=== PATIENT | female | born 1940 | race Two or more races ===

== ENCOUNTER 2020-06-14 08:26 | Outpatient (REF) | payer OTHER, SELFPAY ==
[2020-06-14 10:11] LABS: Alanine Aminotransferase 15 U/L (0-31); Albumin Level 3.9 g/dL (3.5-5.0); Alkaline Phosphatase 63 U/L (39-117); Anion Gap 14 (12-20); Aspartate Amino Transferase 16 U/L (5-31); Blood Urea Nitrogen 19 mg/dL (9-16); Calcium 8.8 mg/dL (8.4-10.2); Carbon Dioxide 28 mmol/L (22-29); Chloride 101 mmol/L (96-108); Cholesterol 176 mg/dL; Estimated Glomerular Filt Rate 44; Glucose Fasting 140 mg/dL (60-99); HDL Cholesterol 58 mg/dL; LDL Cholesterol Calculated 87 mg/dl; Potassium 4.1 mmol/l (3.3-5.1); Sodium 139 mmol/L (135-145); Total Protein 7.1 g/dL (6.5-8.0); Triglycerides 156 mg/dL
== END 2020-06-14 08:27 | disposition home or self-care (01) ==
LOC: HO.LAB 08:26
PROVIDERS: PCP Internal Medicine; Visit Provider Internal Medicine
DX: I10 Essential (primary) hypertension (principal)
CPT/HCPCS: 80053; 80061

== ENCOUNTER 2020-07-05 08:37 | Outpatient (REF) | payer OTHER, SELFPAY ==
[2020-07-05 08:57] LABS: MANUAL DIFF FLAG NO
[2020-07-05 09:06] LABS: Basophils Percent Auto 0.3 % (0-2); Eosinophils Absolute Auto 0.1 X10*3/uL (0.0-0.4); Eosinophils Percent Auto 1.7 % (0-4); Hematocrit 39.2 % (37-47); Hemoglobin 13.7 g/dl (12.0-16.0); Imm Gran Abs Auto 0.01 X10*3/uL (0.00-0.03); Imm Gran Pct Auto 0.2 % (0.0-0.4); Lymphocytes Absolute Auto 1.3 X10*3/uL (1.2-4.9); Lymphocytes Percent Auto 22.1 % (20-40); Mean Corpuscular HGB Conc 34.9 g/dl (31.0-35.0); Mean Corpuscular Hemoglobin 30.6 pg (27.0-33.0); Mean Corpuscular Volume 87.7 fL (80-98); Mean Platelet Volume 9.8 fL (9.4-12.3); Monocytes Absolute Auto 0.4 X10*3/uL (0.1-1.2); Monocytes Percent Auto 6.8 % (2-11); Neutrophils Absolute Auto 4.2 X10*3/uL (2.0-8.3); Neutrophils Percent Auto 68.9 % (45-73); Platelet Count 201 X10*3/uL (160-400); Red Blood Count 4.47 X10*6/uL (4.20-5.50); Red Cell Distribution Width 12.2 % (11.0-16.0)
[2020-07-05 09:35] LABS: Anion Gap 12 (12-20); Blood Urea Nitrogen 22 mg/dL (9-16); Calcium 9.2 mg/dL (8.4-10.2); Carbon Dioxide 28 mmol/L (22-29); Chloride 101 mmol/L (96-108); Estimated Glomerular Filt Rate 40; Potassium 4.1 mmol/l (3.3-5.1); Sodium 137 mmol/L (135-145)
== END 2020-07-05 08:38 | disposition home or self-care (01) ==
LOC: HO.LAB 08:37
PROVIDERS: PCP Internal Medicine; Visit Provider Internal Medicine Hypertension Specialist
DX: I11.0 Hypertensive heart disease with heart failure (principal); N18.9 Chronic kidney disease, unspecified
CPT/HCPCS: 36415; 80051; 82310; 82565; 84520; 85025

== ENCOUNTER 2020-07-10 13:38 | Outpatient (REF) | payer OTHER, SELFPAY ==
--- NOTE | 2020-07-10 | MM_ITS ---
EXAMINATION: MM SCREENING DIGITAL BREAST TOMOSYNTHESIS, BILATERAL CLINICAL INFORMATION: Screening. Asymptomatic. The lifetime risk of breast cancer based on the Tyrer-Cuzick Model is 2%. COMPARISON: Mammography: 03/15/2019, 03/04/2018, 02/05/2017 TECHNIQUE: Digital breast tomosynthesis is performed in both the craniocaudal and mediolateral oblique views along with computer-aided detection (CAD). Synthesized 2D images are generated from the tomosynthesis. FINDINGS: There are scattered areas of fibroglandular density (ACR BI-RADS breast composition Category b). There are no significant masses, abnormal calcifications, or other abnormalities. The axilla and skin contours are unremarkable. No significant changes. MM/MM tomosynthesis screening BI IMPRESSION: No mammographic evidence of malignancy. ASSESSMENT: BI-RADS 1: Negative RECOMMENDATION: Routine annual mammography screening. This patient's information was entered into a reminder system with a target due date for their next mammogram.
== END 2020-07-10 13:39 | disposition home or self-care (01) ==
LOC: HO.MAMMO 13:38
PROVIDERS: PCP Internal Medicine; Visit Provider Internal Medicine
DX: Z12.31 Encounter for screening mammogram for malignant neoplasm of breast (principal)
CPT/HCPCS: 77063; 77067

== ENCOUNTER 2020-11-27 09:10 | Outpatient (REF) | payer MEDICARE, SELFPAY ==
[2020-11-27 10:37] LABS: MANUAL DIFF FLAG NO
[2020-11-27 10:58] LABS: Basophils Percent Auto 0.4 % (0-2); Eosinophils Absolute Auto 0.1 X10*3/uL (0.0-0.4); Eosinophils Percent Auto 1.3 % (0-4); Hematocrit 40.4 % (37-47); Hemoglobin 13.5 g/dl (12.0-16.0); Imm Gran Abs Auto 0.03 X10*3/uL (0.00-0.03); Imm Gran Pct Auto 0.6 % (0.0-0.4); Lymphocytes Absolute Auto 1.3 X10*3/uL (1.2-4.9); Lymphocytes Percent Auto 24.3 % (20-40); Mean Corpuscular HGB Conc 33.4 g/dl (31.0-35.0); Mean Corpuscular Hemoglobin 29.9 pg (27.0-33.0); Mean Corpuscular Volume 89.6 fL (80-98); Mean Platelet Volume 10.3 fL (9.4-12.3); Monocytes Absolute Auto 0.4 X10*3/uL (0.1-1.2); Monocytes Percent Auto 6.6 % (2-11); Neutrophils Absolute Auto 3.6 X10*3/uL (2.0-8.3); Neutrophils Percent Auto 66.8 % (45-73); Platelet Count 200 X10*3/uL (160-400); Red Blood Count 4.51 X10*6/uL (4.20-5.50); Red Cell Distribution Width 12.7 % (11.0-16.0); White Blood Count 5.3 X10*3/uL (4.8-10.8)
[2020-11-27 11:41] LABS: Alanine Aminotransferase 18 U/L (0-31); Alkaline Phosphatase 64 U/L (39-117); Anion Gap 14 (12-20); Aspartate Amino Transferase 18 U/L (5-31); Bilirubin Total 0.8 mg/dL (0.0-1.0); Blood Urea Nitrogen 18 mg/dL (9-16); Calcium 9.5 mg/dL (8.4-10.2); Carbon Dioxide 27 mmol/L (22-29); Chloride 102 mmol/L (96-108); Cholesterol 160 mg/dL; Estimated Glomerular Filt Rate 41; Glucose Fasting 111 mg/dL (60-99); HDL Cholesterol 56 mg/dL; LDL Cholesterol Calculated 73 mg/dl; Potassium 4.1 mmol/L (3.3-5.1); Sodium 139 mmol/L (135-145); Total Protein 7.3 g/dL (6.5-8.0); Triglycerides 158 mg/dL
[2020-11-28 11:56] LABS: Calcium, Ionized 4.9 mg/dL (4.8-5.6)
[2020-12-03 22:56] LABS: Parathyroid Hormone Related Pr 16 pg/mL (14-27)
== END 2020-11-27 09:11 | disposition home or self-care (01) ==
LOC: HO.LAB 09:10
PROVIDERS: PCP Internal Medicine; Visit Provider Internal Medicine
DX: R73.02 Impaired glucose tolerance (oral) (principal); E78.00 Pure hypercholesterolemia, unspecified; E78.5 Hyperlipidemia, unspecified; E21.3 Hyperparathyroidism, unspecified; D64.9 Anemia, unspecified; J45.30 Mild persistent asthma, uncomplicated
CPT/HCPCS: 36415; 80053; 80061; 82330; 83519; 85025

== ENCOUNTER 2020-12-25 09:08 | Outpatient (REF) | payer MEDICARE, SELFPAY ==
[2020-12-25 10:45] LABS: MANUAL DIFF FLAG NO
[2020-12-25 11:05] LABS: Basophils Percent Auto 0.4 % (0-2); Eosinophils Absolute Auto 0.1 X10*3/uL (0.0-0.4); Eosinophils Percent Auto 1.7 % (0-4); Hematocrit 39.5 % (37-47); Hemoglobin 13.4 g/dl (12.0-16.0); Imm Gran Abs Auto 0.02 X10*3/uL (0.00-0.03); Imm Gran Pct Auto 0.4 % (0.0-0.4); Lymphocytes Absolute Auto 1.2 X10*3/uL (1.2-4.9); Lymphocytes Percent Auto 22.4 % (20-40); Mean Corpuscular HGB Conc 33.9 g/dl (31.0-35.0); Mean Corpuscular Hemoglobin 30.5 pg (27.0-33.0); Mean Corpuscular Volume 89.8 fL (80-98); Mean Platelet Volume 10.4 fL (9.4-12.3); Monocytes Absolute Auto 0.4 X10*3/uL (0.1-1.2); Neutrophils Absolute Auto 3.7 X10*3/uL (2.0-8.3); Neutrophils Percent Auto 68.1 % (45-73); Platelet Count 184 X10*3/uL (160-400); Red Cell Distribution Width 12.5 % (11.0-16.0); White Blood Count 5.5 X10*3/uL (4.8-10.8)
[2020-12-25 11:13] LABS: Anion Gap 13 (12-20); Blood Urea Nitrogen 14 mg/dL (9-16); Calcium 9.5 mg/dL (8.4-10.2); Carbon Dioxide 31 mmol/L (22-29); Chloride 100 mmol/L (96-108); Estimated Glomerular Filt Rate 40; Potassium 4.2 mmol/L (3.3-5.1); Sodium 140 mmol/L (135-145)
== END 2020-12-25 09:09 | disposition home or self-care (01) ==
LOC: HO.LAB 09:08
PROVIDERS: PCP Internal Medicine; Visit Provider Internal Medicine Hypertension Specialist
DX: I12.9 Hypertensive chronic kidney disease with stage 1 through stage 4 chronic kidney disease, or unspecified chronic kidney disease (principal); N18.9 Chronic kidney disease, unspecified
CPT/HCPCS: 36415; 80051; 82310; 82565; 84520; 85025

== ENCOUNTER 2021-01-09 08:19 | Outpatient (REF) | payer MEDICARE, SELFPAY ==
[2021-01-09 09:33] LABS: Alanine Aminotransferase 22 U/L (0-31); Albumin Level 4.2 g/dL (3.5-5.0); Alkaline Phosphatase 71 U/L (39-117); Anion Gap 13 (12-20); Aspartate Amino Transferase 28 U/L (5-31); Bilirubin Total 0.7 mg/dL (0.0-1.0); Blood Urea Nitrogen 20 mg/dL (9-16); Calcium 10.4 mg/dL (8.4-10.2); Carbon Dioxide 30 mmol/L (22-29); Chloride 99 mmol/L (96-108); Cholesterol 161 mg/dL; Estimated Glomerular Filt Rate 35; Glucose Fasting 142 mg/dL (60-99); HDL Cholesterol 61 mg/dL; LDL Cholesterol Calculated 77 mg/dl; Potassium 4.4 mmol/L (3.3-5.1); Sodium 138 mmol/L (135-145); Total Protein 7.5 g/dL (6.5-8.0); Triglycerides 116 mg/dL
[2021-01-09 10:00] LABS: Estimated Average Glucose 94 mg/dL; Hemoglobin A1c % 4.9 %
== END 2021-01-09 08:20 | disposition home or self-care (01) ==
LOC: HO.LAB 08:19
PROVIDERS: PCP Internal Medicine; Visit Provider Internal Medicine
DX: E11.40 Type 2 diabetes mellitus with diabetic neuropathy, unspecified (principal); E78.00 Pure hypercholesterolemia, unspecified
CPT/HCPCS: 36415; 80053; 80061; 83036

== ENCOUNTER 2021-03-17 11:37 | Outpatient (REF) | payer MEDICARE, SELFPAY ==
[2021-03-17 14:14] LABS: Alanine Aminotransferase 16 U/L (0-31); Albumin Level 4.1 g/dL (3.5-5.0); Alkaline Phosphatase 69 U/L (39-117); Anion Gap 15 (12-20); Aspartate Amino Transferase 19 U/L (5-31); Bilirubin Total 0.6 mg/dL (0.0-1.0); Blood Urea Nitrogen 18 mg/dL (9-16); Calcium 9.8 mg/dL (8.4-10.2); Carbon Dioxide 29 mmol/L (22-29); Chloride 99 mmol/L (96-108); Estimated Glomerular Filt Rate 40; Glucose Random 129 mg/dL (60-115); Potassium 4.5 mmol/L (3.3-5.1); Sodium 138 mmol/L (135-145); Total Protein 7.3 g/dL (6.5-8.0)
[2021-03-19 11:32] LABS: Calcium (PTHI) 9.6 mg/dL (8.6-10.4); PTHI 78 pg/mL (14-64)
== END 2021-03-17 11:38 | disposition home or self-care (01) ==
LOC: HO.LAB 11:37
PROVIDERS: PCP Internal Medicine; Visit Provider Internal Medicine Hypertension Specialist
DX: I12.9 Hypertensive chronic kidney disease with stage 1 through stage 4 chronic kidney disease, or unspecified chronic kidney disease (principal); N18.9 Chronic kidney disease, unspecified
CPT/HCPCS: 36415; 80053; 83970

== ENCOUNTER 2021-03-26 08:57 | Outpatient (REF) | payer MEDICARE, SELFPAY ==
[2021-03-26 10:13] LABS: Alanine Aminotransferase 17 U/L (0-31); Alkaline Phosphatase 66 U/L (39-117); Anion Gap 13 (12-20); Aspartate Amino Transferase 19 U/L (5-31); Bilirubin Total 0.8 mg/dL (0.0-1.0); Blood Urea Nitrogen 17 mg/dL (9-16); Calcium 9.9 mg/dL (8.4-10.2); Carbon Dioxide 28 mmol/L (22-29); Chloride 101 mmol/L (96-108); Estimated Glomerular Filt Rate 43; Glucose Fasting 126 mg/dL (60-99); Potassium 4.1 mmol/L (3.3-5.1); Sodium 138 mmol/L (135-145); Total Protein 7.2 g/dL (6.5-8.0)
== END 2021-03-26 08:58 | disposition home or self-care (01) ==
LOC: HO.LAB 08:57
PROVIDERS: PCP Internal Medicine; Visit Provider Internal Medicine
DX: R73.02 Impaired glucose tolerance (oral) (principal)
CPT/HCPCS: 36415; 80053

== ENCOUNTER 2021-06-27 09:12 | Outpatient (REF) | payer MEDICARE, SELFPAY ==
[2021-06-27 10:35] LABS: Alanine Aminotransferase 22 U/L (0-31); Alkaline Phosphatase 70 U/L (39-117); Anion Gap 11 (12-20); Aspartate Amino Transferase 21 U/L (5-31); Bilirubin Total 0.6 mg/dL (0.0-1.0); Blood Urea Nitrogen 18 mg/dL (9-16); Calcium 9.6 mg/dL (8.4-10.2); Carbon Dioxide 32 mmol/L (22-29); Chloride 100 mmol/L (96-108); Cholesterol 173 mg/dL; Estimated Glomerular Filt Rate 43; Glucose Fasting 123 mg/dL (60-99); HDL Cholesterol 58 mg/dL; LDL Cholesterol Calculated 88 mg/dl; Potassium 4.3 mmol/L (3.3-5.1); Sodium 139 mmol/L (135-145); Total Protein 7.2 g/dL (6.5-8.0); Triglycerides 139 mg/dL
[2021-07-01 17:07] LABS: Vitamin D 25-OH, D2 <4 ng/mL; Vitamin D 25-OH, D3 50 ng/mL; Vitamin D 25-OH, Total 50 ng/mL (30-100)
== END 2021-06-27 09:13 | disposition home or self-care (01) ==
LOC: HO.XRAY 09:12
PROVIDERS: PCP Internal Medicine; Visit Provider Internal Medicine
DX: E55.9 Vitamin D deficiency, unspecified (principal); E78.5 Hyperlipidemia, unspecified; R73.02 Impaired glucose tolerance (oral)
CPT/HCPCS: 36415; 80053; 80061; 82306

== ENCOUNTER 2021-07-14 09:03 | Outpatient (REF) | payer MEDICARE, SELFPAY ==
[2021-07-14 10:09] LABS: Alanine Aminotransferase 19 U/L (0-31); Albumin Level 3.9 g/dL (3.5-5.0); Alkaline Phosphatase 70 U/L (39-117); Anion Gap 14 (12-20); Aspartate Amino Transferase 18 U/L (5-31); Bilirubin Total 0.8 mg/dL (0.0-1.0); Blood Urea Nitrogen 20 mg/dL (9-16); Calcium 9.6 mg/dL (8.4-10.2); Carbon Dioxide 28 mmol/L (22-29); Chloride 101 mmol/L (96-108); Estimated Glomerular Filt Rate 52; Glucose Random 139 mg/dL (60-115); Potassium 4.3 mmol/L (3.3-5.1); Sodium 139 mmol/L (135-145); Total Protein 7.2 g/dL (6.5-8.0)
== END 2021-07-14 09:04 | disposition home or self-care (01) ==
LOC: HO.LAB 09:03
PROVIDERS: PCP Internal Medicine; Visit Provider Internal Medicine Hypertension Specialist
DX: I12.9 Hypertensive chronic kidney disease with stage 1 through stage 4 chronic kidney disease, or unspecified chronic kidney disease (principal); N18.9 Chronic kidney disease, unspecified
CPT/HCPCS: 36415; 80053

== ENCOUNTER 2021-08-13 09:55 | Outpatient (REF) | payer MEDICARE, SELFPAY ==
--- NOTE | ~2021-08-13 | MM_ITS ---
EXAMINATION: MM SCREENING DIGITAL BREAST TOMOSYNTHESIS, BILATERAL CLINICAL INFORMATION: Screening. Asymptomatic. The lifetime risk of breast cancer based on the Tyrer-Cuzick Model is 2%. COMPARISON: Mammography: 07/10/2020, 03/15/2019, 03/04/2018 TECHNIQUE: Digital breast tomosynthesis is performed in both the craniocaudal and mediolateral oblique views along with computer-aided detection (CAD). Synthesized 2D images are generated from the tomosynthesis. FINDINGS: There are scattered areas of fibroglandular density (ACR BI-RADS breast composition Category b). Breast parenchymal pattern borders on heterogeneously dense. The left breast shows no mass or architectural abnormality. There are scattered bilateral vascular calcifications. The skin contours are smooth. Right breast has subtle focal nodular asymmetry central aspect mid depth under 1 cm with obscured margins. Patient will be recalled for additional imaging. MM/MM tomosynthesis screening BI IMPRESSION: 1. Right: Focal nodular asymmetry central breast under 1 cm, obscured margins. 2. Left: No mammographic evidence of malignancy. ASSESSMENT: BI-RADS 0: Incomplete - Need Additional Imaging Evaluation RECOMMENDATION: 1. Additional views of the right breast (spot CC, spot ML). 2. Targeted ultrasound if warranted after review of the additional views. 3. Radiology department staff will contact the patient for additional imaging. This patient's information was entered into a reminder system with a target due date for their next mammogram.
== END 2021-08-13 09:56 | disposition home or self-care (01) ==
LOC: HO.MAMMO 09:55
PROVIDERS: Visit Provider Internal Medicine
DX: Z12.31 Encounter for screening mammogram for malignant neoplasm of breast (principal)
CPT/HCPCS: 77063; 77067

== ENCOUNTER 2021-08-25 08:54 | Outpatient (REF) | payer MEDICARE, SELFPAY ==
--- NOTE | ~2021-08-25 | MM_ITS ---
EXAMINATION: MM DIAGNOSTIC DIGITAL BREAST TOMOSYNTHESIS, RIGHT US DIAGNOSTIC ULTRASOUND BREAST, RIGHT CLINICAL INFORMATION: Recall from screening for nodular asymmetry central mid right breast under 1 cm with partly obscured margins. COMPARISON: Mammography: 08/13/2021, 07/10/2020, 03/15/2019 TECHNIQUE: Digital breast tomosynthesis is performed. 2D images are generated from the tomosynthesis. The following views are obtained: Spot CC, spot ML. Ultrasound right breast is targeted to the 10:00 through 2:00 position. Grayscale imaging and color Doppler are performed without and with harmonics. FINDINGS: There are scattered areas of fibroglandular density (ACR BI-RADS breast composition Category b). The additional views demonstrate subtle nodular asymmetry central 12:00 right breast. No architectural abnormality. Margins are partly obscured by superimposed fibroglandular tissue. Ultrasound demonstrates scattered small cysts, the 4 largest each measure approximately 0.6 cm in size. Three of the cysts are simple. There is a mildly complicated cyst periareolar 1:00 position with 2 fine internal avascular septations. No solid component or associated color flow. Results are discussed with the patient at time of visit. Six-month follow-up right breast ultrasound will be performed to reassess the cyst with fine internal avascular septations. MM/MM tomosynthesis added views R IMPRESSION: Small cyst anterior right breast, one showing two fine avascular internal septations. ASSESSMENT: BI-RADS 3: Probably Benign RECOMMENDATION: Targeted right breast ultrasound in 6 months. This patient's information was entered into a reminder system with a target due date for their next mammogram.
== END 2021-08-25 08:55 | disposition home or self-care (01) ==
LOC: HO.MAMMO 08:54
PROVIDERS: PCP Internal Medicine; Visit Provider Internal Medicine
DX: R92.2 Inconclusive mammogram (principal)
CPT/HCPCS: 76642; 77061; 77065

== ENCOUNTER 2021-11-12 08:52 | Outpatient (REF) | payer OTHER, SELFPAY ==
[2021-11-12 10:10] LABS: Alanine Aminotransferase 21 U/L (0-31); Alkaline Phosphatase 67 U/L (39-117); Anion Gap 10 (12-20); Aspartate Amino Transferase 19 U/L (5-31); Bilirubin Total 0.8 mg/dL (0.0-1.0); Blood Urea Nitrogen 22 mg/dL (9-16); Calcium 9.7 mg/dL (8.4-10.2); Carbon Dioxide 33 mmol/L (22-29); Chloride 99 mmol/L (96-108); Cholesterol 172 mg/dL; Estimated Glomerular Filt Rate 40; Glucose Fasting 129 mg/dL (60-99); HDL Cholesterol 58 mg/dL; LDL Cholesterol Calculated 88 mg/dl; Sodium 138 mmol/L (135-145); Total Protein 7.2 g/dL (6.5-8.0); Triglycerides 130 mg/dL
== END 2021-11-12 08:53 | disposition home or self-care (01) ==
LOC: HO.LAB 08:52
PROVIDERS: PCP Internal Medicine; Visit Provider Internal Medicine
DX: E78.5 Hyperlipidemia, unspecified (principal); E78.00 Pure hypercholesterolemia, unspecified
CPT/HCPCS: 36415; 80053; 80061

== ENCOUNTER 2022-01-09 08:57 | Outpatient (REF) | payer OTHER, SELFPAY ==
[2022-01-09 09:16] LABS: MANUAL DIFF FLAG NO
[2022-01-09 10:12] LABS: Basophils Percent Auto 0.2 % (0-2); Eosinophils Absolute Auto 0.1 X10*3/uL (0.0-0.4); Eosinophils Percent Auto 1.8 % (0-4); Hematocrit 40.9 % (37.0-47.0); Hemoglobin 13.9 g/dl (12.0-16.0); Imm Gran Abs Auto 0.04 X10*3/uL (0.00-0.03); Imm Gran Pct Auto 0.7 % (0.0-0.4); Lymphocytes Absolute Auto 1.4 X10*3/uL (1.2-4.9); Lymphocytes Percent Auto 23.8 % (20-40); Mean Corpuscular Hemoglobin 30.3 pg (27.0-33.0); Mean Corpuscular Volume 89.3 fL (80.0-98.0); Monocytes Absolute Auto 0.4 X10*3/uL (0.1-1.2); Monocytes Percent Auto 6.4 % (2-11); Neutrophils Percent Auto 67.1 % (45-73); Platelet Count 203 X10*3/uL (160-400); Red Blood Count 4.58 X10*6/uL (4.20-5.50); Red Cell Distribution Width 12.5 % (11.0-16.0)
[2022-01-09 10:53] LABS: Alanine Aminotransferase 19 U/L (0-31); Albumin Level 3.9 g/dL (3.5-5.0); Alkaline Phosphatase 69 U/L (39-117); Anion Gap 12 (12-20); Aspartate Amino Transferase 19 U/L (5-31); Blood Urea Nitrogen 20 mg/dL (9-16); Calcium 9.6 mg/dL (8.4-10.2); Carbon Dioxide 30 mmol/L (22-29); Chloride 99 mmol/L (96-108); Estimated Glomerular Filt Rate 38; Glucose Random 133 mg/dL (60-115); Potassium 4.4 mmol/L (3.3-5.1); Sodium 137 mmol/L (135-145); Total Protein 7.4 g/dL (6.5-8.0)
== END 2022-01-09 08:58 | disposition home or self-care (01) ==
LOC: HO.LAB 08:57
PROVIDERS: PCP Internal Medicine; Visit Provider Internal Medicine Hypertension Specialist
DX: I12.9 Hypertensive chronic kidney disease with stage 1 through stage 4 chronic kidney disease, or unspecified chronic kidney disease (principal); N18.9 Chronic kidney disease, unspecified
CPT/HCPCS: 36415; 80053; 85025

== ENCOUNTER 2022-03-04 12:51 | Outpatient (REF) | payer OTHER, SELFPAY ==
--- NOTE | ~2022-03-04 | US_ITS ---
EXAMINATION: US DIAGNOSTIC ULTRASOUND BREAST, RIGHT CLINICAL INFORMATION: Six-month followup of cystic lesions right breast. COMPARISON: 08/25/2021 and mammographic studies dating back to 01/12/2014. TECHNIQUE: Ultrasound of the breast is performed with real-time aguirre scale imaging and color Doppler. FINDINGS: About the 12 o'clock position of the right breast there are again noted to be multiple cysts present, one of which appears complex and is unchanged. This lies at the 12 o'clock position approximately 3 cm from the nipple. No internal vascularity is identified. There is increased through sound transmission. No abnormal distal sound shadowing identified. This measures approximately 6 x 5 x 3 mm in size. Results are discussed with the patient at time of visit. US/US breast RT limited IMPRESSION: Stable appearance of the right breast. Recommend repeat right breast ultrasound to ensure stability at time of yearly mammogram in 6 months. ASSESSMENT: BI-RADS 3: Probably Benign RECOMMENDATION: Diagnostic mammography in 6 months. This patient's information was entered into a reminder system with a target due date for their next mammogram.
== END 2022-03-04 12:52 | disposition home or self-care (01) ==
LOC: HO.MAMMO 12:51
PROVIDERS: PCP Internal Medicine; Visit Provider Internal Medicine
DX: N60.01 Solitary cyst of right breast (principal)
CPT/HCPCS: 76642

== ENCOUNTER → 2022-03-27 08:53 | Outpatient (REF) | payer OTHER, SELFPAY ==
--- NOTE | 2022-03-27 09:01 | ECG_ITS ---
Test Reason : htn Blood Pressure : / mmHG Vent. Rate : 063 BPM Atrial Rate : 063 BPM P-R Int : 192 ms QRS Dur : 136 ms QT Int : 446 ms P-R-T Axes : 067 019 082 degrees QTc Int : 456 ms Normal sinus rhythm Left bundle branch block Abnormal ECG When compared with ECG of 11-AUG-2019 10:07, Left bundle branch block is now Present Referred By: Melissa Terrell Electronically Signed By:JOHN DIALLO
[2022-03-27 09:45] LABS: Alanine Aminotransferase 15 U/L (0-31); Alkaline Phosphatase 69 U/L (39-117); Anion Gap 14 (12-20); Aspartate Amino Transferase 16 U/L (5-31); Bilirubin Total 0.8 mg/dL (0.0-1.0); Blood Urea Nitrogen 18 mg/dL (9-16); Calcium 9.2 mg/dL (8.4-10.2); Carbon Dioxide 31 mmol/L (22-29); Chloride 100 mmol/L (96-108); Estimated Glomerular Filt Rate 44; Glucose Fasting 142 mg/dL (60-99); Potassium 4.3 mmol/L (3.3-5.1); Sodium 141 mmol/L (135-145); Total Protein 7.2 g/dL (6.5-8.0)
[2022-03-27 10:07] LABS: Vitamin D 25-OH Total 54.8 ng/mL (>30)
[2022-03-30 17:06] LABS: Calcium (PTHI) 9.8 mg/dL (8.6-10.4); PTHI 110 pg/mL (16-77)
[2022-04-02 14:17] LABS: Calcium, Ionized 5.1 mg/dL (4.8-5.6)
== END ==
LOC: HO.CARD 08:53
PROVIDERS: PCP Internal Medicine; Visit Provider Internal Medicine
DX: R42 Dizziness and giddiness (principal); I10 Essential (primary) hypertension; E21.3 Hyperparathyroidism, unspecified
CPT/HCPCS: 36415; 80053; 82306; 82330; 83970; 93005

== ENCOUNTER → 2022-07-13 10:54 | Outpatient (BNVA) | payer OTHER, SELFPAY | PROVIDERS: PCP Internal Medicine; Referring Provider Internal Medicine; Visit Provider Internal Medicine | DX: I44.7 Left bundle-branch block, unspecified (principal); I10 Essential (primary) hypertension | CPT/HCPCS: 99202 ==

== ENCOUNTER 2022-07-16 13:58 | Outpatient (REF) | payer OTHER, SELFPAY ==
--- NOTE | ~2022-07-16 | MM_ITS ---
EXAMINATION: BONE DENSITOMETRY CLINICAL INDICATION: Asymptomatic menopausal state. COMPARISON: Baseline BD dated 11/01/2008. TECHNIQUE: Using a [employer] DXA System (software version: 13.1) manufactured by [employer], dual-energy x-ray absorptiometry was performed of the lumbar spine and left hip. The images are of good technical quality. Summary results are attached. FINDINGS: AP SPINE L1-L4: Current: BMD 1.216 g/cm2, Z-score 2.2, T-score 0.3, normal, 7.0% increase from baseline (<5% change is not significant). Baseline: BMD 1.136 g/cm2. LEFT FEMUR, NECK: Current: BMD 0.957 g/cm2, Z-score 1.6, T-score -0.6, normal. Baseline: BMD 1.019 g/cm2. LEFT FEMUR, TOTAL: Current: BMD 0.965 g/cm2, Z-score 1.7, T-score -0.3, normal, 4.6% decrease from baseline (<5% change is not significant). Baseline: BMD 1.012 g/cm2. IDENTIFIED RISK FACTORS: Early menopause, secondary osteoporosis, hysterectomy, bilateral oophorectomy, recurrent falls, renal. HISTORY OF FRACTURE: None listed. MEDICATIONS: Calcium. MM/XR DEXA axial skeleton IMPRESSION: 1. DIAGNOSIS: Normal bone density based on the lowest T-score value of -0.6 in the femoral neck applying World Health Organization criteria. 2. 10-YEAR FRACTURE RISK PREDICTION, FRAX: According to the guidelines, FRAX calculation should only be performed on patients in the osteopenia bone density category. Therefore, FRAX was not performed on this patient. 3. Treatment Recommendations: NOF guidelines recommend consideration for treatment in postmenopausal women and men age 50 and older presenting with the following: -A hip or vertebral (clinical or morphometric) fracture. -T-score less than or equal to -2.5 at the femoral neck or spine after appropriate evaluation to exclude secondary causes. -Low bone mass at the hip or spine and a 10-year fracture probability by FRAX of greater than or equal to 3% for hip fracture or greater than or equal to 20% for major osteoporotic fracture based on the [place] adapted WHO algorithm. 4. Other Recommendations: All treatment decisions require clinical judgment and consideration of individual patient factors, including patient preferences, comorbidities, previous drug use, risk factors not captured in the FRAX model (e.g. frailty, falls, vitamin D deficiency, increased bone turnover, interval significant decline in bone density) and possible under or overestimation of fracture risk by FRAX. FUTURE SCAN RECOMMENDATION: People with diagnosed cases of osteoporosis or at high risk for fracture should have regular bone mineral density tests. For patients eligible for Medicare, routine testing is allowed once every 2 years. The testing frequency can be increased to one year for patients who have rapidly progressing disease, those who are receiving or discontinuing medical therapy to restore bone mass, or have additional risk factors.
== END 2022-07-16 13:59 | disposition home or self-care (01) ==
LOC: HO.MAMMO 13:58
PROVIDERS: PCP Internal Medicine; Visit Provider Nurse Practitioner Family
DX: Z13.820 Encounter for screening for osteoporosis (principal); Z78.0 Asymptomatic menopausal state
CPT/HCPCS: 77080

== ENCOUNTER 2022-07-17 08:53 | Outpatient (REF) | payer OTHER, SELFPAY ==
[2022-07-17 09:17] LABS: Hematocrit 40.2 % (37.0-47.0); Mean Corpuscular HGB Conc 34.8 g/dl (31.0-35.0); Mean Corpuscular Hemoglobin 30.6 pg (27.0-33.0); Mean Corpuscular Volume 87.8 fL (80.0-98.0); Mean Platelet Volume 9.7 fL (9.4-12.3); Platelet Count 167 X10*3/uL (160-400); Red Blood Count 4.58 X10*6/uL (4.20-5.50); Red Cell Distribution Width 12.5 % (11.0-16.0); White Blood Count 5.2 X10*3/uL (4.8-10.8)
[2022-07-17 09:47] LABS: Anion Gap 12 (12-20); Blood Urea Nitrogen 21 mg/dL (9-16); Calcium 9.5 mg/dL (8.4-10.2); Carbon Dioxide 27 mmol/L (22-29); Chloride 99 mmol/L (96-108); Estimated Glomerular Filt Rate 43; Glucose Random 168 mg/dL (60-115); Sodium 134 mmol/L (135-145)
[2022-07-19 15:39] LABS: Calcium (PTHI) 9.4 mg/dL (8.6-10.4); PTHI 78 pg/mL (16-77)
== END 2022-07-17 08:54 | disposition home or self-care (01) ==
LOC: HO.LAB 08:53
PROVIDERS: PCP Internal Medicine Hypertension Specialist; Visit Provider Internal Medicine Hypertension Specialist
DX: N18.32 Chronic kidney disease, stage 3b (principal)
CPT/HCPCS: 36415; 80048; 83970; 85027

== ENCOUNTER 2022-08-03 08:55 | Outpatient (REF) | payer OTHER, SELFPAY ==
[2022-08-03 09:38] LABS: Estimated Average Glucose 105 mg/dL; Hemoglobin A1c % 5.3 %
== END 2022-08-03 08:56 | disposition home or self-care (01) ==
LOC: HO.LAB 08:55
PROVIDERS: PCP Internal Medicine; Visit Provider Nurse Practitioner Family
DX: R73.02 Impaired glucose tolerance (oral) (principal)
CPT/HCPCS: 36415; 83036

== ENCOUNTER → 2022-08-12 08:11 | Outpatient (REF) | payer OTHER, SELFPAY ==
--- NOTE | ~2022-08-12 | NM_ITS ---
Myocardial perfusion study Indication: Left bundle branch block to evaluate for myocardial ischemia Technique: The patient was brought in for a Lexiscan perfusion study on 08/12/2022. Patient performed low-level exercise and was injected 0.4 mg of Lexiscan intravenously. Within a minute of injection, 25 mCi of sestamibi was given intravenously. Images were obtained using the SPECT gamma camera interlaced with the gating device. Images were obtained in supine position. Resting perfusion study was performed on 08/13/2022. Patient was administered 25 mCi of sestamibi intravenously at rest. Images were then obtained in supine position. Images obtained with and without CT attenuation. Total DLP 86 mGy-cm. Images were processed with the software and compared side to side in short axis, horizontal long axis and vertical long axis views. Findings: The stress perfusion study showed non attenuated images show minimally reduced uptake in the basal septum of the LV myocardium. Remainder of the LV myocardium is normally perfused. Attenuation corrected images show mildly reduced uptake in the apex and distal septum of the LV myocardium.. The gated study shows normal LV systolic function with calculated LVEF of 73%. LV cavity is normal in size. The gated study shows normal systolic wall thickening and contraction of segments. Resting study shows nontender images show mildly reduced uptake in the septum of the LV myocardium. Attenuation corrected images show moderately reduced uptake in the apex and mildly reduced uptake in the distal septum and anterior wall of the LV myocardium.. Gating at rest reveals normal systolic wall motion with ejection fraction at 66%. The findings are consistent with no reversible defect suggestive of ischemia. NM/NM eduarda perf SPECT rest & str Impression: 1. Myocardial perfusion imaging study shows likely normal myocardial perfusion with perfusion abnormality] with left bundle branch block 2. Gated LVEF is 66% 3. Transient ischemic dilatation not present EKG is nondiagnostic for ischemia
--- NOTE | 2022-08-12 08:18 | CA_ITS ---
Acquisition Time: 2022-08-12 09:54:49 Total Exercise Time: 00:02:00 Test Indications: Abnormal ECG LBBB Medications: SEE H Protocol: LEXISCAN Max HR: 092 BPM 65% of Pred: 140 BPM Max BP: 138/060 mmHG Max Work Load: 1.0 METS Pharmacological stress test with Lexiscan injection, while sitting, without anginal symptoms, without arrythmia, with normotensive response to injection, with nondiagnostic EKG for ischemia. Nuclear images pending. Test reviewed with Dr Florez. Referred By: Naren Reyes Overread By: TERESE SÁNCHEZ
--- NOTE | 2022-08-12 08:18 | CA_ITS ---
Transthoracic Echocardiogram Patient (Last, First, Middle): Aditi Gibson, Gender: Female Date of : 1940 Age: 82 Procedure Date: 08/12/2022 Procedure Type: Transthoracic Echocardiogram Location: OP Height: 152.4 cm Weight: 66.23 kg BSA: 1.63 m2 Heart Rate: 72 bpm BP: 135 / 75 mmHg Pants Closer: KAREN Baca MD: Naren Reyes MD Toolmaker Grade Three: Gildardo Florez MD Symptoms: I44.7 - Left bundle-branch block, unspecified Study Quality: Fair ECG Rhythm: Sinus Conclusions: - 1. Normal LV systolic function with impaired relaxation filling pattern 2. Normal cardiac valvular Doppler 3. Normal RV systolic pressure 4. No gross pericardial effusion Findings Left Ventricle Normal left ventricular size, thickness, and systolic function. The visually estimated ejection fraction is between 55-60%. There is paradoxical septal motion consistent with a left bundle branch block. Spectral Doppler is indicative of an impaired relaxation filling pattern. Right Ventricle Normal right ventricular cavity size and systolic function. Atria The left atrium is normal in size. There is a highly mobile atrial septum noted. Interatrial shunt cannot be excluded. The right atrium is normal in size. Aortic Valve The aortic valve was not well visualized. There is no aortic valve stenosis. There is no aortic valve regurgitation. Mitral Valve There is mild anterior and posterior mitral leaflet thickening. There is trace mitral valve regurgitation. There is no mitral valve stenosis. Pulmonic Valve The pulmonic valve was not well visualized. Tricuspid Valve Likely normal tricuspid valve structure and function. There is trace tricuspid valve regurgitation. The right ventricular systolic pressure is normal. The right ventricular systolic pressure is 25 mmHg. Normal right atrial pressure. There is no evidence of pulmonary hypertension. Great Vessels All visible segments of the aorta are normal in size. The pulmonary artery was not well visualized. Venous The inferior vena cava is normal in size and collapses greater than 50% with inspiration. Pericardium/Pleural There is no evidence of pericardial effusion. Prior Study Comparison No prior study available for comparison. Measurements 2D Linear Measurements IVSd: 0.80 0.6-0.9/0.6-1.0 cm LVIDd: 4.02 3.9-5.3/4.2-5.9 cm LVIDd Index: 2.47 2.4-3.2/2.2-3.1 cm/m2 LVIDs: 2.52 2.0-3.6 cm LVPWd: 1.02 0.7-1.1 cm LA Diam: 3.30 2.7-3.8/3.0-4.0 cm LAIDs Index: 2.02 1.5-2.3 cm/m2 LV Mass: 139.47 67-162/88-224 g LV Mass Index: 85.57 43-95/49-115 g/m2 LVOT Diam: 1.70 3.0+(-)1.3 cm 2D Systolic Function EF 4C: 50.00 >55% EF 2C: 64.60 >55% EF BiP: 56.60 >55% Mitral Valve MV Pk E: 0.64 MV PK A: 0.95 MV Decel Time: 335.00 E/A: 0.70 E'Lateral: 5.77 E'Medial: 4.13 E/E' Med: 15.60 E/E' Lat: 11.10 PHT: 98.00 MVA PHT: 2.24 Decel [place]: 1.92 Aortic Valve AoV Pk Jose: 1.45 AoV Mn Jose: 1.00 AoV VTI: 0.31 AoV Pk Grad: 8.00 Aov Mn Grad: 5.00 DESMOND Cont.VTI: 1.53 LVOT LVOT Pk Jose: 1.03 LVOT Mn Jose: 0.66 LVOT VTI: 0.21 LVOT Pk Grad: 4.00 LVOT Mn Grad: 2.00 LVOT Diam: 1.70 LVOT Area: 2.27 Diastolic Function MV Pk E: 0.64 MV Pk A: 0.95 E/A: 0.70 E'Medial: 4.13 E/E' Med: 15.60 E' Laterial: 5.77 E/E' Lat: 11.10 Right Ventricle TAPSE (mm): 18.80 TVS' Jose: 9.65 Tricuspid Valve TR Pk Jose: 2.32 TR Pk Grad: 22.00 RA Press: 3.00 RVSP: 25.00 Great Vessels Aorta Sinus of Valsalva: 2.90 2.0-3.5 cm Pulmonary Valve PV Pk Jose: 1.05 Peak PV Grad: 4.00 Updated in Other Vendor System with Status of Final Gildardo Florez MD electronically signed on 08/14/2022 12:28:11 PM with status of Final
== END ==
LOC: HO.CARD 08:11
PROVIDERS: Absent Provider Internal Medicine Hypertension Specialist; PCP Internal Medicine; Visit Provider Internal Medicine
DX: I44.7 Left bundle-branch block, unspecified (principal); I20.9 Angina pectoris, unspecified
CPT/HCPCS: 78452; 93017; 93306; A9500; J2785

== ENCOUNTER → 2022-08-31 14:31 | Outpatient (BNVA) | payer OTHER, SELFPAY | PROVIDERS: PCP Internal Medicine; Referring Provider Internal Medicine; Visit Provider Internal Medicine | DX: I44.7 Left bundle-branch block, unspecified (principal); I10 Essential (primary) hypertension | CPT/HCPCS: 99212 ==

== ENCOUNTER 2022-09-16 10:51 | Outpatient (REF) | payer OTHER, SELFPAY ==
--- NOTE | ~2022-09-16 | MM_ITS ---
EXAMINATION: MM DIAGNOSTIC DIGITAL BREAST TOMOSYNTHESIS, BILATERAL US DIAGNOSTIC ULTRASOUND BREAST, BILATERAL CLINICAL INFORMATION: Due for yearly. Follow-up benign appearing cyst central right breast with fine internal septation. COMPARISON: Mammography: 08/25/2021, 08/13/2021, 07/10/2020, 03/15/2019; ultrasound right breast 03/04/2022, 08/25/2021 TECHNIQUE: Digital breast tomosynthesis is performed in both the craniocaudal and mediolateral oblique views along with computer-aided detection (CAD). Synthesized 2D images are generated from the tomosynthesis. Additional views are obtained: Bilateral MLO, spot left CC, spot left MLO x2. Ultrasound bilateral breasts is performed using grayscale imaging and color Doppler without and with harmonics. Left breast is targeted to the outer breast. Right breast is targeted to the superior upper breast. FINDINGS: The breasts are heterogeneously dense, which may obscure small masses (ACR BI-RADS breast composition Category c). Breast tissue composition borders on average fibroglandular. There is no abnormal calcifications. The axilla are stable. The skin contours are smooth. Small nodule superior anterior right breast is decreased. No developing density or architectural abnormality. Left breast has subtle oval focal asymmetric density posterior 3:00 position under 1.5 cm with partly obscured margins. No architectural abnormality. Ultrasound left breast demonstrates simple cyst posterior outer breast measuring 1.1 x 0.6 cm corresponding to the location and shape of the finding on mammography. Margins are circumscribed and there is increased through-transmission of sound and no associated color flow. Ultrasound right breast demonstrates the mildly complicated cyst periareolar upper breast under 1 cm. There are 1 or 2 fine internal septations with no associated intracystic nodule, wall thickening, or associated color flow. There is increased through-transmission of sound. This is considered to be benign. Results are discussed with the patient at time of visit, using an building cleaning supervisor. MM/MM tomosynthesis diagnostic BI IMPRESSION: 1. No mammographic evidence of malignancy. 2. Benign cyst outer left breast. 3. Benign mildly complicated cyst anterior upper right breast with fine avascular internal septation. ASSESSMENT: BI-RADS 2: Benign RECOMMENDATION: Routine annual mammography screening. This patient's information was entered into a reminder system with a target due date for their next mammogram.
== END 2022-09-16 10:52 | disposition home or self-care (01) ==
LOC: HO.MAMMO 10:51
PROVIDERS: Visit Provider Internal Medicine
DX: N60.01 Solitary cyst of right breast (principal); N63.25 Unspecified lump in the left breast, overlapping quadrants
CPT/HCPCS: 76642; 77062; 77066

== ENCOUNTER 2022-09-19 07:11 | Outpatient (REF) | payer OTHER, SELFPAY ==
[2022-09-19 08:28] LABS: Anion Gap 17 (12-20); Blood Urea Nitrogen 20 mg/dL (9-16); Calcium 9.6 mg/dL (8.4-10.2); Carbon Dioxide 24 mmol/L (22-29); Chloride 101 mmol/L (96-108); Estimated Glomerular Filt Rate 45; Glucose Random 149 mg/dL (60-115); Sodium 138 mmol/L (135-145)
== END 2022-09-19 07:12 | disposition home or self-care (01) ==
LOC: HO.LAB 07:11
PROVIDERS: PCP Internal Medicine; Visit Provider Internal Medicine Hypertension Specialist
DX: N18.31 Chronic kidney disease, stage 3a (principal)
CPT/HCPCS: 36415; 80048

== ENCOUNTER 2023-04-02 08:51 | Outpatient (REF) | payer OTHER, SELFPAY ==
[2023-04-02 09:33] LABS: Anion Gap 12 (12-20); Blood Urea Nitrogen 21 mg/dL (9-16); Carbon Dioxide 31 mmol/L (22-29); Chloride 101 mmol/L (96-108); Estimated Glomerular Filt Rate 42; Glucose Random 120 mg/dL (60-115); Potassium 4.6 mmol/L (3.3-5.1); Sodium 139 mmol/L (135-145)
== END 2023-04-02 08:52 | disposition home or self-care (01) ==
LOC: HO.LAB 08:51
PROVIDERS: PCP Internal Medicine; Visit Provider Internal Medicine Hypertension Specialist
DX: N18.32 Chronic kidney disease, stage 3b (principal)
CPT/HCPCS: 36415; 80048

== ENCOUNTER 2023-07-21 09:52 | Outpatient (AMB) | payer OTHER, SELFPAY ==
[2023-07-21 09:59] VITALS: BP 120/60; BMI 29.3
--- NOTE | 2023-07-21 09:59 | A.OFFPC_ITS ---
Vital Signs 07/21/23 09:59 Height 4 ft 10 in Weight 140 lb BMI 29.3 BP 120/60 Blood Pressure Location Lt brachial Position Sitting Intake Visit Reasons: Annual exam Intake Note: Patient here for an annual physical exam Street Cleaner Required: No Accompanied by: Self / Same As Patient Allergies aspirin [ASA] Allergy (Intermediate, Verified 07/21/23 10:21) STOMACH ULCER Calcium Channel Blocking Agent Allergy (Uncoded 07/21/23 10:21) Angioedema Lotrel Allergy (Uncoded 07/21/23 10:21) Angioedema Medication List - Last Reconciled 07/21/23 by Melissa Terrell MD amitriptyline 50 mg PO BEDTIME 90 days fluticasone propionate 44 mcg/actuation (Flovent HFA) 1 puff inhalation BID 30 days [incontinence wipes 4 packages per month] meclizine 25 mg PO TID PRN 30 days metoprolol tartrate 25 mg PO BID omeprazole 20 mg PO DAILY 90 days [pantyliner As directed] simvastatin 20 mg PO DAILY 90 days spironolactone 25 mg PO DAILY 90 days Ventolin HFA 90 mcg/actuation (albuterol sulfate) 2 puffs inhalation Q6H PRN 30 days NS Tobacco use date assessed: 11/18/22 Fall risk assessment: No Falls in past year Last assessed Fall Risk: 07/21/23 Dental Screening Dental Screen Date: 07/21/23 Did you have a dental visit in the last 12 months?: Yes Did you have a dental problem in the last 6 months where you did not have access to dental care?: No Was dental information given to patient?: Patient has dentist HPI HPI Comments History of Present Illness Details This is an 83-year-old female that comes for her physical exam. Complains of occasional chest pain that happens at rest or on exertion. Has history of left bundle branch block. No need for mammogram, colonoscopy or Pap smear due to age. [facility] Medical History Moderate persistent asthma Vertigo Hyperparathyroidism Hip pain Mild asthma Impaired glucose tolerance Pure hypercholesterolemia Essential hypertension GERD (gastroesophageal reflux disease) Insomnia Surgical History History of cholecystectomy History of hysterectomy Family History Father No problems noted. Mother Diabetes mellitus Brother Cancer Social History Housing: Apartment Alcohol intake: never Patient Tobacco Use Status: Never used Tobacco e-Cigarette/Vaping Use: Never Used Second Hand Smoke Exposure: Yes service: No Current occupational status: retired Cognitive needs: No Hearing needs: No Vision needs: Yes Questionnaire Thrive Questionnaire Date Thrive assessed: 11/18/22 THAIS-7 AMB Questionnaire THAIS-7 Date THAIS - 7 assessed: 11/18/22 Source: Developed by Drs. Rigoberto Bartholomew, Sabrina Higginbotham, Ranulfo Jones and colleagues, with an educational laurence from [employer]. Review of Systems Const All systems reviewed & are unremarkable except as noted in HPI and below Eyes Reports no additional complaints, Denies change in vision and Denies other visual disturbances Card Reports chest pain at rest, Reports chest pain with activity, Denies edema, Denies irregular heart rhythm, Denies claudication, Denies dyspnea, Denies dyspnea on exertion, Denies orthopnea, Denies paroxysmal nocturnal dyspnea and Denies slow heart rate Resp Denies cough, Denies dyspnea and Denies dyspnea on exertion GI Denies abdominal pain, Denies change in bowel habits, Denies excessive flatus, Denies nausea and Denies vomiting Denies urinary incontinence, Denies urinary hesitancy and Denies urinary urgency Musc Denies abnormal gait, Denies atrophy, Denies deformity and Denies limited range of motion Skin/Breast Denies bleeding lesions, Denies changing lesions and Denies rash Neuro Denies abnormal gait, Denies behavioral changes, Denies confusion and Denies lack of coordination Psych Denies behavioral changes and Denies confusion Physical exam (Primary Care) Vital Signs: Last Vital Signs BP 120/60 07/21/23 09:59 BMI result Body Mass Index 29.3 Tobacco/Smoking Status: Tobacco use Status Tobacco use date assessed 11/18/22 07/21/23 10:03 Patient Tobacco Use Status Never used Tobacco 07/21/23 10:03 e-Cigarette/Vaping Use Never Used 07/21/23 10:03 Thrive Assessment: Date of Thrive Assessment Date Thrive assessed 11/18/22 07/21/23 10:03 Const General: No confusion Orientation/consciousness: patient oriented x3 and No confusion HENMT Head: Yes normal to inspection, Yes normocephalic and Yes atraumatic Ears: external ears normal Eyes General: appearance normal, both eyes and all related structures Eyelids: Yes eyelids normal Conjunctivae: conjunctivae normal Neck Neck: Yes normal visual inspection and Yes supple Resp Effort & Inspection: normal respiratory effort Auscultation: clear to auscultation bilaterally Cardio Jugular venous distension: no JVD Rate: regular rate Rhythm: regular rhythm Heart sounds: S1 normal heart sound present and S2 normal heart sound present GI Inspection: Yes normal to inspection Palpation (GI): Soft to palpation and nontender Auscultation: normal bowel sounds Skin General skin exam: no rashes or lesions noted Neuro General: patient oriented x3, no focal motor deficits and No confusion Extrem General: Yes full ROM Psych Appearance: grossly normal Assessment and Plan Assessment & Plan (1) Adult general medical exam: Code(s): Z00.00 - Encounter for general adult medical examination without abnormal findings Plan: Repeat in a year. Orders: Orders Lipid Panel Today E78.5 - Hyperlipidemia, unspecified Comprehensive [place]. Panel Fast Today Z00.00 - Encounter for general adult medical examination without abnormal findings Vitamin D 25-OH Total Today E21.3 - Hyperparathyroidism, unspecified, E55.9 - Vitamin D deficiency, unspecified ECG 12 lead EKG Today I44.7 - Left bundle-branch block, unspecified Parathyroid Hormone Intact Today E21.3 - Hyperparathyroidism, unspecified Calcium, Ionized Today E21.3 - Hyperparathyroidism, unspecified Calcium, 24 Hr Ur Today E21.3 - Hyperparathyroidism, unspecified Coding Level of Care Code Est Pt Prev Care >65y(18733) Diagnoses Adult general medical exam Z00.00 Time Spent (min) 31
== END 2023-07-21 10:30 | disposition home or self-care (01) ==
PROVIDERS: Visit Provider Internal Medicine
DX: Z00.00 Encounter for general adult medical examination without abnormal findings (principal)
CPT/HCPCS: 99397

== ENCOUNTER → 2023-08-18 12:56 | Outpatient (REF) | payer OTHER, SELFPAY | LOC: HO.CARD 12:56 | PROVIDERS: PCP Internal Medicine; Visit Provider Internal Medicine | DX: I44.7 Left bundle-branch block, unspecified (principal) | CPT/HCPCS: 93306; Q9957 ==

== ENCOUNTER → 2023-08-18 12:59 | Outpatient (BNV) | payer OTHER, SELFPAY | PROVIDERS: PCP Internal Medicine; Visit Provider Internal Medicine Cardiovascular Disease | DX: I36.1 Nonrheumatic tricuspid (valve) insufficiency (principal) | CPT/HCPCS: 93306 ==

== ENCOUNTER 2023-08-30 12:39 | Outpatient (AMB) | payer OTHER, SELFPAY ==
--- NOTE | 2023-08-30 12:53 | A.OFFVIS_ITS ---
Intake Vital Signs 08/30/23 12:56 Height 4 ft 10 in Weight 138 lb 7.205 oz BMI 28.9 BP 118/66 Blood Pressure Location Lt brachial Position Sitting Pulse 77 Intake Visit Reasons: 1Y w/echo Intake Note: 1 year follow up w. EKG Crime Scene Photographer Required: No Accompanied by: Daughter Allergies aspirin [ASA] Allergy (Intermediate, Verified 08/30/23 12:57) STOMACH ULCER Calcium Channel Blocking Agent Allergy (Uncoded 08/30/23 12:57) Angioedema Lotrel Allergy (Uncoded 08/30/23 12:57) Angioedema Medication List - Last Reconciled 08/30/23 by Naren Reyes MD amitriptyline 50 mg PO BEDTIME 90 days fluticasone propionate 44 mcg/actuation (Flovent HFA) 1 puff inhalation BID 30 days [incontinence wipes 4 packages per month] meclizine 25 mg PO TID PRN 30 days metoprolol tartrate 25 mg PO BID omeprazole 20 mg PO DAILY 90 days [pantyliner As directed] simvastatin 20 mg PO DAILY 90 days spironolactone 25 mg PO DAILY 90 days Ventolin HFA 90 mcg/actuation (albuterol sulfate) 2 puffs inhalation Q6H PRN 30 days NS HPI HPI Comments History of Present Illness Details Iris returns for follow-up regarding left bundle-branch block. Overall, she is feeling fine. No history of any coronary disease or myocardial infarction or cardiomyopathy or any other cardiac issues. She had hypertension that has apparently been difficult to control in the past but pressures seem to be generally okay. Overall, doing fine. No new issues. [facility] Medical History Moderate persistent asthma Vertigo Hyperparathyroidism Hip pain Mild asthma Impaired glucose tolerance Pure hypercholesterolemia Essential hypertension GERD (gastroesophageal reflux disease) Insomnia Surgical History History of cholecystectomy History of hysterectomy Family History Father No problems noted. Mother Diabetes mellitus Brother Cancer Social History Housing: Apartment Alcohol intake: never Patient Tobacco Use Status: Never used Tobacco e-Cigarette/Vaping Use: Never Used Second Hand Smoke Exposure: Yes service: No Current occupational status: retired Cognitive needs: No Hearing needs: No Vision needs: Yes Review of Systems Const Denies weakness ENT Denies dizziness Card Denies chest pain, Denies chest pain with activity, Denies syncope, Denies rapid heart rate, Denies pedal edema, Denies edema, Denies leg edema, Denies lightheadedness, Denies palpitations, Denies dyspnea, Denies dyspnea on exertion and Denies orthopnea Resp Denies cough, Denies dyspnea and Denies dyspnea on exertion GI Denies hematochezia and Denies change in stool character Musc Denies abnormal gait, Denies muscle cramps, Denies muscle weakness, Denies numbness, Denies radiating pain into limb and Denies tingling Neuro Denies abnormal gait, Denies dizziness, Denies syncope, Denies numbness, Denies tingling and Denies weakness Endo Denies palpitations Physical Exam Vital Signs: Last Vital Signs Pulse 77 08/30/23 12:56 BP 118/66 08/30/23 12:56 BMI result Body Mass Index 28.9 Const General: comfortable and no acute distress Orientation/consciousness: patient oriented x3 HEENT Other: Unremarkable Head: Yes normal to inspection Neck Neck: Yes normal visual inspection Chest Chest palpation & inspection: normal inspection of the chest Resp Auscultation: clear to auscultation bilaterally Cardio Palpation: normal PMI Heart sounds: S1 normal heart sound present, S2 normal heart sound present, no gallops, no murmurs and no rubs GI Palpation (GI): Soft to palpation Back/Spine/Pelvis Other: unremarkable Skin General skin exam: no rashes or lesions noted Neuro General: patient oriented x3 Extrem General: Yes normal to inspection Psych Mental Status: mental status grossly normal Office Procedures EKG Details: EKG with sinus rhythm at 77/Min; left bundle-branch block pattern. [id number], Complete Assessment & Plan Assessment & Plan (1) LBBB (left bundle branch block): Code(s): I44.7 - Left bundle-branch block, unspecified Plan: EKG with left bundle-branch block which has been present for the last 5 years or so since 2019. Echocardiogram with preserved LVEF at 60-65%. Unremarkable valvular structure and function. Myocardial perfusion imaging study with likely normal perfusion. Discussed in detail with patient and daughter about left bundle-branch block and implications. They understand. If any concerns like significant dizziness, presyncope or syncope they will contact us immediately or seek urgent medical attention. (2) Essential hypertension: Code(s): I10 - Essential (primary) hypertension Plan: Metoprolol dose was cut back in the past. Then advised to stop and start amlodipine but it seems that she got allergic reaction and hence still remains on a small dose of metoprolol. Blood pressure seems stable. No further changes at this time. Plan Total time spent including review of data, counseling daughter, documentation-31 minutes. Quality Reporting (2019) Adult ([facility] 138/10/07/68) Smoking risk assessment performed?: Yes Patient Tobacco Use Status: Never used Tobacco Coding Level of Care Code Est Pt Level 4 (26855) Diagnoses LBBB (left bundle branch block) I44.7 Essential hypertension I10 CPT Codes EKG - CPT: 79609-[id number], Complete ([id number])
[2023-08-30 12:56] VITALS: BP 118/66; PULSE 77; BMI 28.9
== END 2023-08-30 13:48 | disposition home or self-care (01) ==
PROVIDERS: Visit Provider Internal Medicine
DX: I44.7 Left bundle-branch block, unspecified (principal); I10 Essential (primary) hypertension
CPT/HCPCS: 93010; 99214

== ENCOUNTER → 2023-08-30 12:39 | Outpatient (BNVA) | payer OTHER, SELFPAY | PROVIDERS: Visit Provider Internal Medicine | DX: I44.7 Left bundle-branch block, unspecified (principal); I10 Essential (primary) hypertension | CPT/HCPCS: 93005; 99212 ==

== ENCOUNTER 2023-09-24 08:57 | Outpatient (REF) | payer OTHER, SELFPAY ==
--- NOTE | ~2023-09-24 | MM_ITS ---
EXAMINATION: MM SCREENING DIGITAL BREAST TOMOSYNTHESIS, BILATERAL CLINICAL INFORMATION: Screening. Asymptomatic. COMPARISON: Mammography: This study is compared with prior exams dating back to 2019. TECHNIQUE: Digital breast tomosynthesis is performed in both the craniocaudal and mediolateral oblique views along with computer-aided detection (CAD). Synthesized 2D images are generated from the tomosynthesis. FINDINGS: The breasts are heterogeneously dense, which may obscure small masses (ACR BI-RADS breast composition Category c). There is a well-circumscribed, oval focal asymmetry in the upper outer quadrant of the left breast measuring approximately 2 cm in greatest mammographic dimension. Additional mammographic and targeted sonographic evaluation of this finding are advised. In the right breast, there are no significant masses, abnormal calcifications, or other abnormalities. MM/MM tomosynthesis screening BI IMPRESSION: Focal asymmetry of the left breast warrants additional mammographic and targeted sonographic evaluation. No mammographic signs of malignancy right breast. ASSESSMENT: BI-RADS BI-RADS 0 - Incomplete: Needs additional Imaging. RECOMMENDATION: 1. Additional views of the left breast 2. Targeted ultrasound if warranted after review of the additional views. 3. Radiology department staff will contact the patient for additional imaging. Additional Imaging required This examination should not preclude the clinical evaluation of a suspicious palpable abnormality. This patient's information was entered into a reminder system with a target due date for their next mammogram.
--- NOTE | 2023-09-24 09:14 | ECG_ITS ---
Test Reason : LBBB Blood Pressure : / mmHG Vent. Rate : 078 BPM Atrial Rate : 078 BPM P-R Int : 174 ms QRS Dur : 130 ms QT Int : 402 ms P-R-T Axes : 067 026 083 degrees QTc Int : 458 ms Normal sinus rhythm Left bundle branch block Abnormal ECG When compared with ECG of 27-MAR-2022 09:04, No significant change was found Referred By: Melissa Terrell Electronically Signed By:JOHN DIALLO
[2023-09-24 10:40] LABS: Parathyroid Hormone Intact 105.2 pg/mL (8.7-77.1)
[2023-09-24 10:55] LABS: Alanine Aminotransferase 15 U/L (0-31); Albumin Level 3.9 g/dL (3.5-5.0); Alkaline Phosphatase 63 U/L (39-117); Anion Gap 10 (12-20); Aspartate Amino Transferase 16 U/L (5-31); Bilirubin Total 0.8 mg/dL (0.0-1.0); Blood Urea Nitrogen 19 mg/dL (9-16); Calcium 9.5 mg/dL (8.4-10.2); Carbon Dioxide 29 mmol/L (22-29); Chloride 103 mmol/L (96-108); Cholesterol 159 mg/dL (<200); Estimated Glomerular Filt Rate 55; Glucose Fasting 110 mg/dL (60-99); HDL Cholesterol 62 mg/dL (>40); LDL Cholesterol Calculated 81 mg/dL (<100); Potassium 4.4 mmol/L (3.3-5.1); Sodium 138 mmol/L (135-145); Total Protein 7.3 g/dL (6.5-8.0); Triglycerides 81 mg/dL (<150)
[2023-09-24 10:59] LABS: Vitamin D 25-OH Total 53.5 ng/mL (>30)
[2023-09-27 15:37] LABS: Calcium, Ionized 5.1 mg/dL (4.7-5.5)
== END 2023-09-24 08:58 | disposition home or self-care (01) ==
LOC: HO.MAMMO 08:57
PROVIDERS: PCP Internal Medicine; Visit Provider Internal Medicine
DX: Z00.00 Encounter for general adult medical examination without abnormal findings (principal); E21.3 Hyperparathyroidism, unspecified; E78.5 Hyperlipidemia, unspecified; E55.9 Vitamin D deficiency, unspecified; I44.7 Left bundle-branch block, unspecified; Z12.31 Encounter for screening mammogram for malignant neoplasm of breast
CPT/HCPCS: 36415; 77063; 77067; 80053; 80061; 82306; 82330; 83970; 93005

== ENCOUNTER → 2023-09-24 09:14 | Outpatient (BNV) | payer OTHER, SELFPAY | PROVIDERS: PCP Internal Medicine; Visit Provider Internal Medicine | DX: I44.7 Left bundle-branch block, unspecified (principal); R94.31 Abnormal electrocardiogram [ECG] [EKG] | CPT/HCPCS: 93010 ==

== ENCOUNTER → 2023-09-24 10:00 | Outpatient (BNV) | payer OTHER, SELFPAY | PROVIDERS: PCP Internal Medicine; Visit Provider Radiology Diagnostic Radiology | DX: Z12.31 Encounter for screening mammogram for malignant neoplasm of breast (principal) | CPT/HCPCS: 77063; 77067 ==

== ENCOUNTER 2023-10-08 09:51 | Outpatient (REF) | payer OTHER, SELFPAY ==
[2023-10-08 10:09] LABS: MANUAL DIFF FLAG NO
[2023-10-08 10:49] LABS: Basophils Percent Auto 0.4 % (0-2); Eosinophils Absolute Auto 0.1 X10*3/uL (0.0-0.4); Eosinophils Percent Auto 1.4 % (0-4); Hematocrit 40.1 % (37.0-47.0); Hemoglobin 13.8 g/dl (12.0-16.0); Imm Gran Abs Auto 0.02 X10*3/uL (0.00-0.03); Imm Gran Pct Auto 0.4 % (0.0-0.4); Lymphocytes Absolute Auto 1.3 X10*3/uL (1.2-4.9); Lymphocytes Percent Auto 27.5 % (20-40); Mean Corpuscular HGB Conc 34.4 g/dl (31.0-35.0); Mean Corpuscular Hemoglobin 30.5 pg (27.0-33.0); Mean Corpuscular Volume 88.5 fL (80.0-98.0); Mean Platelet Volume 9.9 fL (9.4-12.3); Monocytes Absolute Auto 0.4 X10*3/uL (0.1-1.2); Monocytes Percent Auto 7.4 % (2-11); Neutrophils Percent Auto 62.9 % (45-73); Platelet Count 193 X10*3/uL (160-400); Red Blood Count 4.53 X10*6/uL (4.20-5.50); Red Cell Distribution Width 12.4 % (11.0-16.0); White Blood Count 4.8 X10*3/uL (4.8-10.8)
[2023-10-08 11:15] LABS: Alanine Aminotransferase 12 U/L (0-31); Alkaline Phosphatase 66 U/L (39-117); Anion Gap 15 (12-20); Aspartate Amino Transferase 17 U/L (5-31); Bilirubin Total 0.6 mg/dL (0.0-1.0); Blood Urea Nitrogen 25 mg/dL (9-16); Carbon Dioxide 28 mmol/L (22-29); Chloride 102 mmol/L (96-108); Cholesterol 160 mg/dL (<200); Estimated Glomerular Filt Rate 48; Glucose Fasting 116 mg/dL (60-99); Glucose Random 113 mg/dL (60-115); HDL Cholesterol 63 mg/dL (>40); LDL Cholesterol Calculated 82 mg/dL (<100); Potassium 4.8 mmol/L (3.3-5.1); Sodium 140 mmol/L (135-145); Total Protein 7.5 g/dL (6.5-8.0); Triglycerides 77 mg/dL (<150)
[2023-10-08 11:46] LABS: Vitamin D 25-OH Total 52.2 ng/mL (>30)
[2023-10-08 11:48] LABS: Creatinine Urine 88.85 mg/dL; Total Protein Urine Random < 7 mg/dL (<12)
[2023-10-11 13:04] LABS: Calcium, Ionized 5.3 mg/dL (4.7-5.5)
== END 2023-10-08 09:52 | disposition home or self-care (01) ==
LOC: HO.LAB 09:51
PROVIDERS: Absent Provider Internal Medicine Nephrology; PCP Internal Medicine; Visit Provider Internal Medicine Hypertension Specialist
DX: I12.9 Hypertensive chronic kidney disease with stage 1 through stage 4 chronic kidney disease, or unspecified chronic kidney disease (principal); N18.30 Chronic kidney disease, stage 3 unspecified; E21.3 Hyperparathyroidism, unspecified; E78.5 Hyperlipidemia, unspecified; E55.9 Vitamin D deficiency, unspecified; R73.02 Impaired glucose tolerance (oral)
CPT/HCPCS: 36415; 80053; 80061; 82306; 82330; 82570; 84156; 85025

== ENCOUNTER 2023-10-14 14:58 | Outpatient (AMB) | payer OTHER, SELFPAY ==
[2023-10-14 15:00] VITALS: BP 132/58; PULSE 79; O2SAT 98; BMI 28.8
--- NOTE | 2023-10-14 15:00 | HO.NEPHOV_ITS ---
HPI HPI Comments History of Present Illness Details 83 year old female with hypertension, GE RD, pure hypercholesterolemia, impaired glucose tolerance and hyperparathyroidism that comes today for follow up on her condtions. Accompanied by her daughter h/o NI Recently had a syncopal episode [facility] Medical History Moderate persistent asthma Vertigo Hyperparathyroidism Hip pain Mild asthma Impaired glucose tolerance Pure hypercholesterolemia Essential hypertension GERD (gastroesophageal reflux disease) Insomnia Surgical History History of cholecystectomy History of hysterectomy Family History Father No problems noted. Mother Diabetes mellitus Brother Cancer Social History Housing: Apartment Alcohol intake: never Patient Tobacco Use Status: Never used Tobacco e-Cigarette/Vaping Use: Never Used Second Hand Smoke Exposure: Yes service: No Current occupational status: retired Cognitive needs: No Hearing needs: No Vision needs: Yes Vital Signs 10/14/23 15:00 Height 4 ft 10 in Weight 138 lb BMI 28.8 BP 132/58 L Blood Pressure Location Lt brachial Position Sitting Pulse 79 Pulse Source Pulse Oximeter Pulse Oximetry (%) 98 Oxygen Delivery Method Room Air Physical Exam Vital Signs: Last Vital Signs Pulse 79 10/14/23 15:00 BP 132/58 L 10/14/23 15:00 Pulse Ox 98 10/14/23 15:00 Oxygen Delivery Method Room Air 10/14/23 15:00 BMI result Body Mass Index 28.8 Const General: comfortable and no acute distress Orientation/consciousness: patient oriented x3 HEENT Other: Unremarkable Head: Yes normal to inspection Neck Neck: Yes normal visual inspection Chest Chest palpation & inspection: normal inspection of the chest Resp Auscultation: clear to auscultation bilaterally Cardio Palpation: normal PMI Heart sounds: S1 normal heart sound present, S2 normal heart sound present, no gallops, no murmurs and no rubs GI Palpation (GI): Soft to palpation Back/Spine/Pelvis Other: unremarkable Skin General skin exam: no rashes or lesions noted Neuro General: patient oriented x3 Extrem General: Yes normal to inspection Psych Mental Status: mental status grossly normal Assessment & Plan Assessment & Plan (1) Essential hypertension: Code(s): I10 - Essential (primary) hypertension Plan: BP well controlled Low salt diet No change in meds (2) CKD (chronic kidney disease) stage 3, GFR 30-59 ml/min: Code(s): N18.30 - Chronic kidney disease, stage 3 unspecified Plan: Stable 3 B in a setting of HTN and 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 Overall stable Avoid nephrotoxins Increase PO fluid intake (3) Hyperparathyroidism: Code(s): E21.3 - Hyperparathyroidism, unspecified Plan: Secondary Due to CKD Ca normal Watch for now (4) LBBB (left bundle branch block): Code(s): I44.7 - Left bundle-branch block, unspecified Plan: Follow up with cardiology Orders: Orders Parathyroid Hormone Intact 1 Year N18.30 - Chronic kidney disease, stage 3 unspecified Complete Blood Count no Diff 1 Year N18.30 - Chronic kidney disease, stage 3 unspecified Basic Metabolic Panel 1 Year N18.30 - Chronic kidney disease, stage 3 unspecified Phosphorus 1 Year N18.30 - Chronic kidney disease, stage 3 unspecified Coding Level of Care Code Est Pt Level 4 (73854) Diagnoses Essential hypertension I10 CKD (chronic kidney disease) stage 3, GFR 30-59 ml/min N18.30 Hyperparathyroidism E21.3 LBBB (left bundle branch block) I44.7 Results Reviewed Nephrology Results: Hgb 13.8 g/dl (12.0-16.0) 10/08/23 WBC 4.8 X10*3/uL (4.8-10.8) 10/08/23 Plt Count 193 X10*3/uL (160-400) 10/08/23 Sodium 140 mmol/L (135-145) 10/08/23 Potassium 4.8 mmol/L (3.3-5.1) 10/08/23 Chloride 102 mmol/L (96-108) 10/08/23 Carbon Dioxide 28 mmol/L (22-29) 10/08/23 BUN 25 mg/dL (9-16) H 10/08/23 Creatinine 1.09 mg/dL (0.5-1.4) 10/08/23 Calcium 10.0 mg/dL (8.4-10.2) 10/08/23 PTH Intact 105.2 pg/mL (8.7-77.1) H 09/24/23 Urine Creatinine 88.85 mg/dL 10/08/23 Protein/Creatinin Ratio TNP 10/08/23
== END 2023-10-14 15:25 | disposition home or self-care (01) ==
PROVIDERS: PCP Internal Medicine; Visit Provider Internal Medicine Hypertension Specialist
DX: I10 Essential (primary) hypertension (principal); N18.30 Chronic kidney disease, stage 3 unspecified; E21.3 Hyperparathyroidism, unspecified; I44.7 Left bundle-branch block, unspecified
CPT/HCPCS: 99214

== ENCOUNTER → 2023-10-14 14:58 | Outpatient (BNVA) | payer OTHER, SELFPAY | PROVIDERS: PCP Internal Medicine; Visit Provider Internal Medicine Hypertension Specialist | DX: I12.9 Hypertensive chronic kidney disease with stage 1 through stage 4 chronic kidney disease, or unspecified chronic kidney disease (principal); N18.30 Chronic kidney disease, stage 3 unspecified; I44.7 Left bundle-branch block, unspecified; E21.3 Hyperparathyroidism, unspecified | CPT/HCPCS: 99212 ==

== ENCOUNTER → 2023-10-20 14:44 | Outpatient (REF) | payer OTHER, SELFPAY ==
--- NOTE | 2023-10-20 14:48 | HM_ITS ---
Conclusion: 1. Patient was monitored for total period of 14 days 2. Baseline was normal sinus rhythm with average heart rate of 74 beats per minute 3. No significant pauses noted 4. Rare PACs and PVCs noted 5. Patient marked the counter 4 times without any associated symptoms, correlating with sinus rhythm MTDD
--- NOTE | 2023-10-20 15:01 | ECG_ITS ---
Test Reason : I44.7 - Left bundle-branch block, unspecified Blood Pressure : / mmHG Vent. Rate : 077 BPM Atrial Rate : 077 BPM P-R Int : 176 ms QRS Dur : 136 ms QT Int : 406 ms P-R-T Axes : 062 006 087 degrees QTc Int : 459 ms Normal sinus rhythm Left bundle branch block Abnormal ECG When compared with ECG of 24-SEP-2023 09:16, No significant change was found Referred By: Naren Reyes Electronically Signed By:Donnie Mccoy
== END ==
LOC: HO.CARD 14:44
PROVIDERS: PCP Internal Medicine; Visit Provider Internal Medicine
DX: I44.7 Left bundle-branch block, unspecified (principal); R55 Syncope and collapse
CPT/HCPCS: 93005; 93246

== ENCOUNTER → 2023-10-20 15:01 | Outpatient (BNV) | payer OTHER, SELFPAY | PROVIDERS: PCP Internal Medicine; Visit Provider Internal Medicine Cardiovascular Disease | DX: I44.7 Left bundle-branch block, unspecified (principal) | CPT/HCPCS: 93010; 93248 ==

== ENCOUNTER 2023-11-09 14:50 | Outpatient (AMB) | payer OTHER, SELFPAY ==
--- NOTE | 2023-11-09 15:24 | MHC.OFFVIS ---
Intake Vital Signs 11/09/23 15:25 Height 4 ft 10 in Weight 147 lb 11.355 oz BMI 30.9 BP 122/68 Blood Pressure Location Lt brachial Position Sitting Pulse 72 Intake Visit Reasons: follow up after Holter Intake Note: follow up after holter monitor Hand Candy Cutter Required: Yes Hand Candy Cutter Name: Daughter Accompanied by: Daughter Allergies aspirin [ASA] Allergy (Intermediate, Verified 10/14/23 15:03) STOMACH ULCER Calcium Channel Blocking Agent Allergy (Uncoded 08/30/23 12:57) Angioedema Lotrel Allergy (Uncoded 08/30/23 12:57) Angioedema Medication List - Last Reconciled 11/09/23 by Malia Lowe, [employer]BER SEC[employer]ITY INSTRUCTOR-C amitriptyline 50 mg PO BEDTIME 90 days fluticasone propionate 44 mcg/actuation (Flovent HFA) 1 puff inhalation BID 30 days [incontinence wipes 4 packages per month] meclizine 25 mg PO TID PRN 30 days metoprolol tartrate 25 mg PO BID omeprazole 20 mg PO DAILY 90 days [pantyliner As directed] simvastatin 20 mg PO DAILY 90 days spironolactone 25 mg PO DAILY 90 days Ventolin HFA 90 mcg/actuation (albuterol sulfate) 2 puffs inhalation Q6H PRN 30 days NS HPI follow up after Holter HPI Details Aditi is an 83-year-old female with past medical history of left bundle branch block with normal EF who had reports of lightheadedness and syncope then Holter monitor was ordered and she now presents for follow-up. Today she reports that she has had some lightheadedness in recent weeks but no recurrent syncope. Her daughter is present and describes that her mother has been having some lightheadedness. She had an episode back in September where she was cooking and then became dizzy, felt palpitation then woke up on the floor. She describes a history of vertigo but never had presyncope or syncope. Daughter expresses much concern that this may be cardiac related. No heart palpitations felt at other times. No chest discomfort, shortness of breath, PND, orthopnea or edema. Taking all meds as directed. Daughter states they monitor her blood pressure at home and it is never low. [facility] Medical History Moderate persistent asthma Vertigo Hyperparathyroidism Hip pain Mild asthma Impaired glucose tolerance Pure hypercholesterolemia Essential hypertension GERD (gastroesophageal reflux disease) Insomnia Surgical History History of cholecystectomy History of hysterectomy Family History Father No problems noted. Mother Diabetes mellitus Brother Cancer Social History Housing: Apartment Alcohol intake: never Patient Tobacco Use Status: Never used Tobacco e-Cigarette/Vaping Use: Never Used Second Hand Smoke Exposure: Yes service: No Current occupational status: retired Cognitive needs: No Hearing needs: No Vision needs: Yes Review of Systems Const Details: Episodes of lightheadedness. Has had fainting and falling All systems reviewed & are unremarkable except as noted in HPI and below Denies weakness ENT Denies dizziness Card Denies chest pain, Denies chest pain with activity, Denies syncope, Denies rapid heart rate, Denies pedal edema, Denies edema, Denies leg edema, Denies lightheadedness, Denies palpitations, Denies dyspnea, Denies dyspnea on exertion and Denies orthopnea Resp Denies cough, Denies dyspnea and Denies dyspnea on exertion GI Denies hematochezia and Denies change in stool character Musc Denies abnormal gait, Denies muscle cramps, Denies muscle weakness, Denies numbness, Denies radiating pain into limb and Denies tingling Neuro Denies abnormal gait, Denies dizziness, Denies syncope, Denies numbness, Denies tingling and Denies weakness Endo Denies palpitations Physical Exam Vital Signs: Last Vital Signs Pulse 72 11/09/23 15:25 BP 122/68 11/09/23 15:25 BMI result Body Mass Index 30.9 Const General: cooperative, healthy appearing, comfortable and no acute distress Orientation/consciousness: patient oriented x3 Neck Neck: Yes normal visual inspection and Yes no JVD Resp Effort & Inspection: normal respiratory effort Auscultation: clear to auscultation bilaterally, no rales, no rhonchi and no wheezes Cardio Jugular venous distension: no JVD Rate: regular rate Rhythm: regular rhythm Heart sounds: S1 normal heart sound present, S2 normal heart sound present, no murmurs and no rubs Neuro General: patient oriented x3 Extrem General: Yes normal to inspection and No no pedal edema Psych Appearance: grossly normal Mental Status: mental status grossly normal Speech and movement: Normal speech and movement present Assessment & Plan Assessment & Plan (1) Syncope: Code(s): R55 - Syncope and collapse Plan: Episode of lightheadedness, palpitation followed by syncopal event occurring September 2023. She did not seek emergency medical care. She told her daughter after the event had occurred. Last echocardiogram done 08/18/2023 showing EF 60-65%, normal valve Dopplers, impaired relaxation. A 14 day Holter monitor done on 10/20/2023 showed sinus rhythm with average heart rate 74, rare PACs and PVCs, patient press symptom counter 4 times which correlated with sinus rhythm. She has had some lightheadedness but no presyncope or syncope. She recalls having a lightheaded episode when she wore the Holter monitor. She has a known history of left bundle branch block. Last EKG done in August shows no other electrical abnormalities. Daughter states event was not related to hypotension as she never has a low blood pressure at home. Her blood pressure is in the normal range today. Her syncopal event was unwitnessed. She felt well upon awakening. Less likely to be seizure activity. It is possible her event is related to arrhythmia. Will further evaluate with a cardiac event monitor. Cardiology follow-up in 6-8 weeks, sooner if needed. Emergency care if ever needed for recurrent syncope or symptoms. (2) LBBB (left bundle branch block): Code(s): I44.7 - Left bundle-branch block, unspecified Plan: Chronic left bundle branch block. Normal EF on recent echo. (3) Essential hypertension: Code(s): I10 - Essential (primary) hypertension Plan: Well controlled at present time. No med changes made. Plan Time spent on chart review, documentation, interview and assessment Orders: Orders ECG 30 day event monitor Today I44.7 - Left bundle-branch block, unspecified, R55 - Syncope and collapse Quality Reporting (2019) Adult ([facility] 138/2/) Smoking risk assessment performed?: Yes Patient Tobacco Use Status: Never used Tobacco Coding Level of Care Code Est Pt Level 4 (53081) Diagnoses Syncope R55 LBBB (left bundle branch block) I44.7 Essential hypertension I10 Time Spent (min) 30
[2023-11-09 15:25] VITALS: BP 122/68; PULSE 72; BMI 30.9
== END 2023-11-09 15:54 | disposition home or self-care (01) ==
PROVIDERS: PCP Internal Medicine; Visit Provider Nurse Practitioner Family
DX: R55 Syncope and collapse (principal); I44.7 Left bundle-branch block, unspecified; I10 Essential (primary) hypertension
CPT/HCPCS: 99214

== ENCOUNTER → 2023-11-09 14:50 | Outpatient (BNVA) | payer OTHER, SELFPAY | PROVIDERS: PCP Internal Medicine; Visit Provider Nurse Practitioner Family | DX: I10 Essential (primary) hypertension (principal); I44.7 Left bundle-branch block, unspecified; R55 Syncope and collapse | CPT/HCPCS: 99212 ==

== ENCOUNTER 2023-11-23 10:53 | Outpatient (REF) | payer OTHER, SELFPAY ==
--- NOTE | ~2023-11-23 | US_ITS ---
EXAMINATION: US DIAGNOSTIC ULTRASOUND BREAST, LEFT CLINICAL INFORMATION: Evaluate circumscribed mass lateral aspect left breast, previously worked up with mammography and ultrasound 09/16/2022. Appears minimally larger. COMPARISON: 09/24/2023 screening mammography. 09/16/2022 diagnostic mammography and diagnostic left breast ultrasound, TECHNIQUE: Re-imaging the left breast with diagnostic mammographic views was felt to be unnecessary, adhering to ALARA principles. Ultrasound of the left breast is performed with real-time aguirre scale imaging and color Doppler. Attention was given to the 3:00 axis in the region of known simple cyst. FINDINGS: This mammographic abnormality was imaged 09/16/2022 on diagnostic left breast ultrasound and mammography, and is known to represent a simple cyst. On today's ultrasound exam, this appears slightly larger measuring 1.7 x 0.9 x 1.9 cm (previously 1.1 x 0.6 x 0.9 cm). It remains a simple cyst without complicating features and is benign. No additional or new findings are identified sonographically. Results are discussed with the patient at time of visit. US/US breast LT limited mamm only IMPRESSION: Slightly larger simple cyst left breast 3:00 axis, benign. This accounts for the mammographic abnormality. No further follow-up of this finding recommended. Recommend the patient return to routine annual screening to include both breasts. ASSESSMENT: BI-RADS 2 - Benign Findings RECOMMENDATION: 1 year F/U This patient's information was entered into a reminder system with a target due date for their next mammogram.
== END 2023-11-23 10:54 | disposition home or self-care (01) ==
LOC: HO.MAMMO 10:53
PROVIDERS: PCP Internal Medicine; Visit Provider Internal Medicine
DX: N64.89 Other specified disorders of breast (principal)
CPT/HCPCS: 76642

== ENCOUNTER → 2023-11-23 12:00 | Outpatient (BNV) | payer OTHER, SELFPAY | PROVIDERS: PCP Internal Medicine; Visit Provider Radiology Diagnostic Radiology | DX: R92.8 Other abnormal and inconclusive findings on diagnostic imaging of breast (principal) | CPT/HCPCS: 76642 ==

== ENCOUNTER → 2023-11-30 14:01 | Outpatient (REF) | payer OTHER, SELFPAY ==
--- NOTE | 2023-11-30 14:32 | HM_ITS ---
Cardiac event monitor Indication: Syncope Technique: Patient was hooked up to cardiac event monitor on 11/30/2023 for total period of 30 days with compliance rate of about 81%. Findings: Baseline was normal sinus rhythm with no significant pauses with lowest heart rate of 56 beats per minute sinus bradycardia and a maximum heart rate 110 beats per minute sinus tachycardia. There were rare PACs noted. There were no sustained arrhythmias noted. Patient reported 4 events correlating with sinus rhythm. Conclusion: 1. Baseline was normal sinus rhythm without any significant pauses 2. Rare PACs noted 3. Patient reported events correlated with sinus rhythm MTDD
== END ==
LOC: HO.CARD 14:01
PROVIDERS: PCP Internal Medicine; Visit Provider Nurse Practitioner Family
DX: I44.7 Left bundle-branch block, unspecified (principal); R55 Syncope and collapse
CPT/HCPCS: 93270

== ENCOUNTER → 2023-11-30 14:32 | Outpatient (BNV) | payer OTHER, SELFPAY | PROVIDERS: PCP Internal Medicine; Visit Provider Internal Medicine Cardiovascular Disease | DX: I49.1 Atrial premature depolarization (principal) | CPT/HCPCS: 93272 ==

== ENCOUNTER 2024-01-04 14:51 | Outpatient (AMB) | payer OTHER, SELFPAY ==
[2024-01-04 15:05] VITALS: BP 124/62; PULSE 76; BMI 28.8
--- NOTE | 2024-01-04 15:05 | MHC.OFFVIS ---
Vital Signs 01/04/24 15:05 Height 4 ft 10 in Weight 138 lb 0.15 oz BMI 28.8 BP 124/62 Blood Pressure Location Lt brachial Position Sitting Pulse 76 Pulse Source Pulse Oximeter Intake Visit Reasons: 6-8 week f/up Fuselage Framer Required: No Allergies aspirin [ASA] Allergy (Intermediate, Verified 01/04/24 15:08) STOMACH ULCER Calcium Channel Blocking Agent Allergy (Uncoded 01/04/24 15:08) Angioedema Lotrel Allergy (Uncoded 01/04/24 15:08) Angioedema Medication List - Last Reconciled 01/04/24 by Malia Lowe, BARBARA-C amitriptyline 50 mg PO BEDTIME 90 days fluticasone propionate 44 mcg/actuation (Flovent HFA) 1 puff inhalation BID 30 days [incontinence wipes 4 packages per month] meclizine 25 mg PO TID PRN 30 days metoprolol tartrate 25 mg PO BID omeprazole 20 mg PO DAILY 90 days [pantyliner As directed] simvastatin 20 mg PO DAILY 90 days spironolactone 25 mg PO DAILY 90 days Ventolin HFA 90 mcg/actuation (albuterol sulfate) 2 puffs inhalation Q6H PRN 30 days NS HPI HPI 6-8 week f/up: Details: Aditi is an 83-year-old female with past medical history of left bundle branch block with normal EF who had reports of lightheadedness and syncope who had cardiac event monitor and presents for follow-up. Today she reports that she has had 3-4 episodes of lightheadedness in recent weeks but no recurrent syncope. No heart palpitations, chest discomfort, shortness of breath, PND, orthopnea or edema. Cardiac event monitor was sent in 4 days ago. Taking all meds as directed. Daughter states they monitor her blood pressure at home and it is never low. Daughter assisting with Italian translation at their request, permit signed. [facility] Medical History Moderate persistent asthma Vertigo Hyperparathyroidism Hip pain Mild asthma Impaired glucose tolerance Pure hypercholesterolemia Essential hypertension GERD (gastroesophageal reflux disease) Insomnia Surgical History History of cholecystectomy History of hysterectomy Family History Father No problems noted. Mother Diabetes mellitus Brother Cancer Social History Housing: Apartment Alcohol intake: never Patient Tobacco Use Status: Never used Tobacco e-Cigarette/Vaping Use: Never Used Second Hand Smoke Exposure: Yes service: No Current occupational status: retired Cognitive needs: No Hearing needs: No Vision needs: Yes Review of Systems Const Details: lightheadeness episodes All systems reviewed & are unremarkable except as noted in HPI and below ENT Denies dizziness Card Denies chest pain, Denies chest pain at rest, Denies chest pain with activity, Denies rapid heart rate, Denies pedal edema, Denies edema, Denies leg edema, Denies lightheadedness, Denies palpitations, Denies dyspnea, Denies dyspnea on exertion and Denies orthopnea Resp Denies cough, Denies dyspnea and Denies dyspnea on exertion GI Denies hematochezia and Denies change in stool character Musc Denies abnormal gait, Denies limited range of motion, Denies muscle cramps, Denies muscle weakness, Denies numbness, Denies radiating pain into limb, Denies stiffness and Denies tingling Neuro Denies abnormal gait, Denies dizziness, Denies numbness and Denies tingling Endo Denies palpitations Physical Exam Vital Signs: Last Vital Signs Pulse 76 01/04/24 15:05 BP 124/62 01/04/24 15:05 BMI result Body Mass Index 28.8 Const General: cooperative, healthy appearing, comfortable and no acute distress Orientation/consciousness: patient oriented x3 Neck Neck: Yes normal visual inspection and Yes no JVD Resp Effort & Inspection: normal respiratory effort Auscultation: clear to auscultation bilaterally, no rales, no rhonchi and no wheezes Cardio Jugular venous distension: no JVD Rate: regular rate Rhythm: regular rhythm Heart sounds: S1 normal heart sound present, S2 normal heart sound present, no murmurs and no rubs Neuro General: patient oriented x3 Extrem General: Yes normal to inspection and No no pedal edema Psych Appearance: grossly normal Mental Status: mental status grossly normal Speech and movement: Normal speech and movement present Quality Reporting (2019) Adult ([facility] 138/2//69) Smoking risk assessment performed?: Yes Patient Tobacco Use Status: Never used Tobacco Assessment & Plan Assessment & Plan (1) Syncope: Code(s): R55 - Syncope and collapse Category: Medical Plan: Episode of lightheadedness, palpitation followed by syncopal event occurring September 2023. She did not seek emergency medical care. She told her daughter after the event had occurred. Last echocardiogram done 08/18/2023 showing EF 60-65%, normal valve Dopplers, impaired relaxation. A 14 day Holter monitor done on 10/20/2023 showed sinus rhythm with average heart rate 74, rare PACs and PVCs, patient press symptom counter 4 times which correlated with sinus rhythm. She has continued to have episodes of lightheadedness but no presyncope or syncope. She recalls having a lightheaded episode when she wore the Holter monitor. She has a known history of left bundle branch block. Last EKG done in August shows no other electrical abnormalities. Daughter states event was not related to hypotension as she never has a low blood pressure at home. Her blood pressure is in the normal range today. Her syncopal event was unwitnessed. She felt well upon awakening. Less likely to be seizure activity. It is possible her event is related to arrhythmia. For further evaluation she underwent a cardiac event monitor. The results on that is pending. Plan to review and call daughter/patient with results. Cardiology follow-up to be determined based on results. Emergency care if ever needed for recurrent syncope or symptoms. (2) LBBB (left bundle branch block): Code(s): I44.7 - Left bundle-branch block, unspecified Category: Medical Plan: Chronic left bundle branch block. Normal EF on recent echo. (3) Essential hypertension: Code(s): I10 - Essential (primary) hypertension Category: Medical Plan: Well controlled at present time. No med changes made. Plan Time spent on chart review, documentation, interview and assessment Coding Level of Care Code Est Pt Level 3 (10581) Diagnoses Syncope R55 LBBB (left bundle branch block) I44.7 Essential hypertension I10 Time Spent (min) 24
== END 2024-01-04 15:29 | disposition home or self-care (01) ==
PROVIDERS: PCP Internal Medicine; Visit Provider Nurse Practitioner Family
DX: R55 Syncope and collapse (principal); I44.7 Left bundle-branch block, unspecified; I10 Essential (primary) hypertension
CPT/HCPCS: 99213

== ENCOUNTER → 2024-01-04 14:51 | Outpatient (BNVA) | payer OTHER, SELFPAY | PROVIDERS: PCP Internal Medicine; Visit Provider Nurse Practitioner Family | DX: I44.7 Left bundle-branch block, unspecified (principal); R55 Syncope and collapse; I10 Essential (primary) hypertension | CPT/HCPCS: 99212 ==

== ENCOUNTER 2024-01-20 09:55 | Outpatient (AMB) | payer OTHER, SELFPAY ==
[2024-01-20 09:58] VITALS: BP 126/70; BMI 28.8
--- NOTE | 2024-01-20 09:58 | MHC.PC.OV ---
Vital Signs 01/20/24 09:58 Height 4 ft 10 in Weight 138 lb BMI 28.8 BP 126/70 Blood Pressure Location Lt brachial Position Sitting Intake Visit Reasons: 4mth f/u Intake Note: Patient here for a 4 month follow up [employer] Guidance Counselor Required: No Accompanied by: Self / Same As Patient Allergies aspirin [ASA] Allergy (Intermediate, Verified 01/20/24 10:15) STOMACH ULCER Calcium Channel Blocking Agent Allergy (Uncoded 01/20/24 10:15) Angioedema Lotrel Allergy (Uncoded 01/20/24 10:15) Angioedema Medication List - Last Reconciled 01/20/24 by Melissa Terrell MD amitriptyline 50 mg PO BEDTIME 90 days fluticasone propionate 44 mcg/actuation (Flovent HFA) 1 puff inhalation BID 30 days [incontinence wipes 4 packages per month] meclizine 25 mg PO TID PRN 30 days metoprolol tartrate 25 mg PO BID omeprazole 20 mg PO DAILY 90 days [pantyliner As directed] simvastatin 20 mg PO DAILY 90 days spironolactone 25 mg PO DAILY 90 days Ventolin HFA 90 mcg/actuation (albuterol sulfate) 2 puffs inhalation Q6H PRN 30 days NS Tobacco use date assessed: 01/20/24 Fall risk assessment: No Falls in past year Last assessed Fall Risk: 01/20/24 Dental Screening Dental Screen Date: 01/20/24 Did you have a dental visit in the last 12 months?: No Did you have a dental problem in the last 6 months where you did not have access to dental care?: No Was dental information given to patient?: Patient has dentist HPI HPI Comments History of Present Illness Details This is an 83-year-old female with hypertension, GERD, pure hypercholesterolemia, chronic kidney disease stage 3 and hyperparathyroidism that comes today for follow-up on her conditions. Blood pressure stable. GERD stable with PPIs. On statins for her elevated cholesterol and lipid panel will be order. Chronic kidney disease has been stable with last GFR of 48 and this is follow by Nephrology. Has hyperparathyroidism most likely secondary due to chronic kidney disease. Vitamin-D was normal the last time as well as bone density. No shortness on breath. Blood glucose elevated and will be repeated. Denies polyuria, polydipsia or unintentional weight loss. She still complains of some occasional chest pain that can happen at rest and is follow by cardiology. No significant abnormality in her Holter monitor. [facility] Medical History (Updated 01/20/24 @ 10:31 by Melissa Terrell MD) Moderate persistent asthma Vertigo Hyperparathyroidism Hip pain Mild asthma Impaired glucose tolerance Pure hypercholesterolemia Essential hypertension GERD (gastroesophageal reflux disease) Insomnia Surgical History History of cholecystectomy History of hysterectomy Family History Father No problems noted. Mother Diabetes mellitus Brother Cancer Social History Housing: Apartment Alcohol intake: never Patient Tobacco Use Status: Never used Tobacco e-Cigarette/Vaping Use: Never Used Second Hand Smoke Exposure: Yes service: No Current occupational status: retired Cognitive needs: No Hearing needs: No Vision needs: Yes Questionnaire PHQ-9 Over the last 2 weeks, how often have you been bothered by any of the following problems? 1. Little interest or pleasure in doing things: not at all 2. Feeling down, depressed, or hopeless: not at all 3. Trouble falling or staying asleep, or sleeping too much: not at all 4. Feeling tired or having little energy: not at all 5. Poor appetite or overeating: not at all 6. Feeling bad about yourself - or that you are a failure or have let yourself or your family down: not at all 7. Trouble concentrating on things, such as reading the newspaper or watching television: not at all 8. Moving or speaking so slowly that other people could have noticed. Or the opposite - being so fidgety or restless that you have been moving around a lot more than usual: not at all 9. Thoughts that you would be better off or of hurting yourself in some way: not at all Total score: 0 Depression Screening Interpretation: Negative Depression Screening Done: Yes 72343 - PHQ-9 Billing: Yes Source: Developed by Drs. Rigoberto Bartholomew, Sabrina Higginbotham, Ranulfo Jones and colleagues, with an educational laurence from [employer]. Thrive Questionnaire Date Thrive assessed: 01/20/24 I am a: Patient What is your living situation today?: I have a steady place to live Within the past 12 months, did the food you bought not last and you didn't have the money to get more?: Never true Within the past 12 months, did you worry whether your food would run out before you got money to buy more?: Never true Do you have trouble paying for medicines?: No Do you have trouble getting transportation to medical appointments?: No Do you have trouble paying your heating and electricity bill?: No Do you have trouble taking care of your child, family member or friend?: No Do you have trouble with day-to-day activities such as bathing, preparing meals, shopping, managing finances, etc.?: No Are you currently unemployed and looking for a job?: No Are you interested in more education?: No Please select the resources that you would like help with: None Currently or been in a relationship where the following occur: no concerns reported THRIVE Score: 0 AUDIT C Alcohol Use Questionnaire (AUDIT-C) 1. How often do you have a drink containing alcohol?: Never Total Score: 0 Score Reviewed/Action Taken: No THAIS-7 AMB Questionnaire THAIS-7 Date THAIS - 7 assessed: 01/20/24 Feeling nervous, anxious, or on edge: 0 = Not at all Not being able to stop or control worryin = Not at all Worrying too much about different things: 0 = Not at all Trouble relaxin = Not at all Being so restless that it is hard to sit still: 0 = Not at all Becoming easily annoyed or irritable: 0 = Not at all Feeling afraid as if something awful might happen: 0 = Not at all Total THAIS-7 score (0-4 normal; 5-9 mild; 10-14 moderate; 15-21 severe): 0 Source: Developed by Drs. Rigoberto Bartholomew, Sabrina Higginbotham, Ranulfo Jones and colleagues, with an educational laurence from [employer]. THAIS-7 Assessment Billing THAIS-7 Assessment Tool: THAIS-7 Assessment 46076 Review of Systems Const All systems reviewed & are unremarkable except as noted in HPI and below Card Denies chest pain at rest, Denies chest pain with activity, Denies edema, Denies irregular heart rhythm, Denies claudication, Denies dyspnea, Denies dyspnea on exertion, Denies orthopnea, Denies paroxysmal nocturnal dyspnea and Denies slow heart rate Resp Denies cough, Denies dyspnea and Denies dyspnea on exertion Physical exam (Primary Care) Vital Signs: Last Vital Signs BP 126/70 01/20/24 09:58 BMI result Body Mass Index 28.8 Tobacco/Smoking Status: Tobacco use Status Tobacco use date assessed 01/20/24 01/20/24 10:04 Patient Tobacco Use Status Never used Tobacco 01/20/24 10:04 e-Cigarette/Vaping Use Never Used 01/20/24 10:04 PHQ-9: PHQ-9 Score PHQ-9: Total score 0 01/20/24 10:04 Depression Screening Interpretation: Negative Thrive Assessment: Date of Thrive Assessment Date Thrive assessed 01/20/24 01/20/24 10:04 Currently or been in a relationship where the following occur: no concerns reported Resp Effort & Inspection: normal respiratory effort Auscultation: clear to auscultation bilaterally Cardio Jugular venous distension: no JVD Rate: regular rate Rhythm: regular rhythm Heart sounds: S1 normal heart sound present and S2 normal heart sound present Extrem General: Yes full ROM Assessment and Plan Assessment & Plan (1) CKD (chronic kidney disease) stage 3, GFR 30-59 ml/min: Code(s): N18.30 - Chronic kidney disease, stage 3 unspecified Qualifiers: Chronic kidney disease stage 3 subtype: stage 3a (GFR 45-59) Qualified Code(s): N18.31 - Chronic kidney disease, stage 3a Plan: Follow-up with nephrology. Keep blood pressure less than 130/80. Avoid NSAIDs. (2) Hyperparathyroidism: Code(s): E21.3 - Hyperparathyroidism, unspecified Plan: Repeat parathyroid with other labs. (3) Essential hypertension: Code(s): I10 - Essential (primary) hypertension Plan: Continue spironolactone. Blood pressure goal is equal or less than 130/80. (4) GERD (gastroesophageal reflux disease): Code(s): K21.9 - Gastro-esophageal reflux disease without esophagitis Qualifiers: Esophagitis presence: esophagitis presence not specified Qualified Code(s): K21.9 - Gastro-esophageal reflux disease without esophagitis Plan: Continue PPIs. (5) Pure hypercholesterolemia: Code(s): E78.00 - Pure hypercholesterolemia, unspecified Plan: Continue statins. Repeat lipid panel. Orders: Orders Comprehensive [place]. Panel Fast Today E21.3 - Hyperparathyroidism, unspecified Parathyroid Hormone Intact Today E21.3 - Hyperparathyroidism, unspecified Phosphorus Today E21.3 - Hyperparathyroidism, unspecified XR DEXA axial skeleton 4 Months N95.9 - Unspecified menopausal and perimenopausal disorder Lipid Panel Today E78.5 - Hyperlipidemia, unspecified Vitamin D 25-OH Total Today E55.9 - Vitamin D deficiency, unspecified Calcium, Ionized Today E21.3 - Hyperparathyroidism, unspecified Coding Level of Care Code Est Pt Level 4 (06048) Complex EM visit Add On G2211 Diagnoses Stage 3a chronic kidney disease N18.31 Chronic kidney disease stage 3 subtype: stage 3a (GFR 45-59) Hyperparathyroidism E21.3 Essential hypertension I10 Gastroesophageal reflux disease, unspecified whether esophagitis present K21.9 Esophagitis presence: esophagitis presence not specified Pure hypercholesterolemia E78.00 Additional Codes THAIS-7 Assessment Billing - THAIS-7 Assessment Tool: THAIS-7 Assessment 26434 ([id number]) Time Spent (min) 23
== END 2024-01-20 10:21 | disposition home or self-care (01) ==
PROVIDERS: PCP Internal Medicine; Visit Provider Internal Medicine
DX: I12.9 Hypertensive chronic kidney disease with stage 1 through stage 4 chronic kidney disease, or unspecified chronic kidney disease (principal); N18.31 Chronic kidney disease, stage 3a; E21.3 Hyperparathyroidism, unspecified; K21.9 Gastro-esophageal reflux disease without esophagitis; E78.00 Pure hypercholesterolemia, unspecified
CPT/HCPCS: 99214; G2211

== ENCOUNTER → 2024-03-03 09:27 | Outpatient (REF) | payer OTHER, SELFPAY ==
--- NOTE | ~2024-03-03 | NM_ITS ---
Myocardial perfusion study Indication: Syncope to evaluate for myocardial ischemia Technique: The patient was brought in for a Lexiscan perfusion study on 03/03/2024. Patient performed low-level exercise and was injected 0.4 mg of Lexiscan intravenously. Within a minute of injection, 25 mCi of sestamibi was given intravenously. Images were obtained using the SPECT gamma camera interlaced with the gating device. Images were obtained in supine position. Resting perfusion study was performed on 03/06/2024. Patient was administered 25 mCi of sestamibi intravenously at rest. Images were then obtained in supine position. Images obtained with and without CT attenuation. Total DLP 82 mGy-cm. Images were processed with the software and compared side to side in short axis, horizontal long axis and vertical long axis views. Findings: The stress perfusion study showed non attenuated images show normal uptake of radiotracer in all segments of LV myocardium. Attenuation corrected images show mildly reduced uptake in the anteroapical, septal and moderately reduced uptake in the apex of the LV myocardium.. The gated study shows normal LV systolic function with calculated LVEF of 70%. LV cavity is normal in size. The gated study shows normal systolic wall thickening and contraction of segments. Resting study shows no change in perfusion to stress perfusion study. Gating at rest reveals normal systolic wall motion with ejection fraction at 70%. The findings are consistent with no reversible changes in perfusion pattern ruling out ischemia. Most likely normal myocardial perfusion. NM/NM cardiolite stress test Impression: 1. Myocardial perfusion imaging study shows likely normal myocardial perfusion 2. Gated LVEF is 70% 3. Transient ischemic dilatation not present EKG is nondiagnostic for ischemia
--- NOTE | 2024-03-03 09:35 | CA_ITS ---
Acquisition Time: 2024-03-03 09:58:29 Total Exercise Time: 00:02:00 Test Indications: Syncope Medications: Protocol: LEXISCAN Max HR: 108 BPM 77% of Pred: 139 BPM Max BP: 166/064 mmHG Max Work Load: 1.0 METS Pharmacological stress test with Lexiscan injection while sitting, without anginal symptoms, with isolated PACs and PVCs, with normotensive response to injection, with nondiagnoisitic EKGs. Aminophylline 75mg IVP given to reverse Lexiscan, Nuclear images pending. Test reviewed with Dr. Florez Referred By: Malia Lowe Overread By: Marlen Mccall
== END ==
LOC: HO.CARD 09:27
PROVIDERS: PCP Internal Medicine; Visit Provider Nurse Practitioner Family
DX: I44.7 Left bundle-branch block, unspecified (principal); R55 Syncope and collapse
CPT/HCPCS: 78452; 93017; A9500; J0280; J2785

== ENCOUNTER → 2024-03-03 09:35 | Outpatient (BNV) | payer OTHER, SELFPAY | PROVIDERS: PCP Internal Medicine; Visit Provider Nurse Practitioner | DX: R55 Syncope and collapse (principal) | CPT/HCPCS: 78452; 93016; 93018 ==

== ENCOUNTER 2024-04-10 15:05 | Outpatient (AMB) | payer OTHER, SELFPAY ==
[2024-04-10 15:23] VITALS: BP 148/62; PULSE 77; BMI 29.4
--- NOTE | 2024-04-10 15:23 | MHC.OFFVIS ---
Vital Signs 04/10/24 15:23 Height 4 ft 10 in Weight 140 lb 10.479 oz BMI 29.4 BP 148/62 H Blood Pressure Location Lt brachial Position Sitting Pulse 77 Pulse Source Pulse Oximeter Intake Visit Reasons: fu testing results Injection Molder Required: No Allergies aspirin [ASA] Allergy (Intermediate, Verified 04/10/24 15:27) STOMACH ULCER Calcium Channel Blocking Agent Allergy (Uncoded 04/10/24 15:27) Angioedema Lotrel Allergy (Uncoded 04/10/24 15:27) Angioedema Medication List - Last Reconciled 04/10/24 by Malia Lowe NP-C amitriptyline 50 mg PO BEDTIME 90 days fluticasone propionate 44 mcg/actuation (Flovent HFA) 1 puff inhalation BID 30 days [incontinence wipes 4 packages per month] meclizine 25 mg PO TID PRN 30 days metoprolol tartrate 25 mg PO BID omeprazole 20 mg PO DAILY 90 days [pantyliner As directed] simvastatin 20 mg PO DAILY 90 days spironolactone 25 mg PO DAILY 90 days Ventolin HFA 90 mcg/actuation (albuterol sulfate) 2 puffs inhalation Q6H PRN 30 days NS HPI HPI fu testing results: Details: Aditi is an 84-year-old female with past medical history of left bundle branch block with normal EF, syncopal episode, chest discomfort who recently had a stress test and now presents for follow-up. Today she reports that she has not had any recent episodes of lightheadedness and she has had no recurrent presyncope or syncope. She will feel an occasional discomfort in her chest that occurs randomly, nonexertional. She is having difficulty describing it but states that it lasts only brief. No, shortness of breath, PND, orthopnea or edema. Taking all meds as directed. Daughter is present and assisting with Tristanian translation at their request, permit signed. [facility] Medical History Moderate persistent asthma Vertigo Hyperparathyroidism Hip pain Mild asthma Impaired glucose tolerance Pure hypercholesterolemia Essential hypertension GERD (gastroesophageal reflux disease) Insomnia Surgical History History of cholecystectomy History of hysterectomy Family History Father No problems noted. Mother Diabetes mellitus Brother Cancer Social History Housing: Apartment Alcohol intake: never Patient Tobacco Use Status: Never used Tobacco e-Cigarette/Vaping Use: Never Used Second Hand Smoke Exposure: Yes service: No Current occupational status: retired Cognitive needs: No Hearing needs: No Vision needs: Yes Review of Systems Const All systems reviewed & are unremarkable except as noted in HPI and below ENT Denies dizziness Card Details: Heart palpitations Denies chest pain, Denies chest pain at rest, Denies chest pain with activity, Denies rapid heart rate, Denies pedal edema, Denies edema, Denies leg edema, Denies lightheadedness, Denies palpitations, Denies dyspnea, Denies dyspnea on exertion and Denies orthopnea Resp Denies cough, Denies dyspnea and Denies dyspnea on exertion GI Denies hematochezia and Denies change in stool character Musc Denies abnormal gait, Denies limited range of motion, Denies muscle cramps, Denies muscle weakness, Denies numbness, Denies radiating pain into limb, Denies stiffness and Denies tingling Neuro Denies abnormal gait, Denies dizziness, Denies numbness and Denies tingling Endo Denies palpitations Physical Exam Vital Signs: Last Vital Signs Pulse 77 04/10/24 15:23 BP 148/62 H 04/10/24 15:23 BMI result Body Mass Index 29.4 Const General: cooperative, healthy appearing, comfortable and no acute distress Orientation/consciousness: patient oriented x3 Neck Neck: Yes normal visual inspection and Yes no JVD Resp Effort & Inspection: normal respiratory effort Auscultation: clear to auscultation bilaterally, no crackles, no rales, no rhonchi and no wheezes Cardio Jugular venous distension: no JVD Rate: regular rate Rhythm: regular rhythm Heart sounds: S1 normal heart sound present, S2 normal heart sound present, no murmurs and no rubs Neuro General: patient oriented x3 Extrem General: Yes normal to inspection Psych Appearance: grossly normal Mental Status: mental status grossly normal Speech and movement: Normal speech and movement present Quality Reporting (2019) Adult ([facility] 138/2//) Smoking risk assessment performed?: Yes Patient Tobacco Use Status: Never used Tobacco Assessment & Plan Assessment & Plan (1) Syncope: Code(s): R55 - Syncope and collapse Category: Medical Plan: Episode of lightheadedness, palpitation followed by syncopal event occurring September 2023. She did not seek emergency medical care. She told her daughter after the event had occurred. Last echocardiogram done 08/18/2023 showing EF 60-65%, normal valve Dopplers, impaired relaxation. A 14 day Holter monitor done on 10/20/2023 showed sinus rhythm with average heart rate 74, rare PACs and PVCs, patient press symptom counter 4 times which correlated with sinus rhythm. She has continued to have episodes of lightheadedness but no presyncope or syncope. A cardiac event monitor 11/30/23 for 30 days shows sinus rhythm with rare PACs, no significant arrhythmia. She has a known history of left bundle branch block. EKGs done during recent stress test showed no other electrical abnormalities. No clear cardiac finding for her syncope. Her event was unwitnessed. Reviewed need for good hydration, use caution when going sitting to standing. If she feels lightheaded she is to sit or lay down until the symptom passes. No further cardiac testing needed at this time. Emergency care if ever needed for recurrent syncope or symptoms. Cardiology follow-up 1 year, sooner if needed. (2) LBBB (left bundle branch block): Code(s): I44.7 - Left bundle-branch block, unspecified Category: Medical Plan: Chronic left bundle branch block. Normal EF on recent echo. (3) Essential hypertension: Code(s): I10 - Essential (primary) hypertension Category: Medical Plan: Mildly elevated today. Daughter states home blood pressures range in the 120s to 130 systolic. She is compliant with her metoprolol and Aldactone. No med change made today. (4) Palpitations: Code(s): R00.2 - Palpitations Category: Medical Plan: Reported brief uncomfortable feeling in her chest, that lasts a second. Cardiac monitoring done as above. A nuclear stress test had been done on 03/06/2024 showing normal myocardial perfusion imaging. Her symptom is most likely related to extrasystoles. Her monitoring shows only rare ectopy. Offered reassurance. Discussed reduction in caffeinated beverages, increase physical activity and getting adequate sleep. Plan Time spent on chart review, documentation, interview and assessment Coding Level of Care Code Est Pt Level 3 (74994) Diagnoses Syncope R55 LBBB (left bundle branch block) I44.7 Essential hypertension I10 Palpitations R00.2 Time Spent (min) 24
== END 2024-04-10 15:54 | disposition home or self-care (01) ==
PROVIDERS: PCP Internal Medicine; Visit Provider Nurse Practitioner Family
DX: R55 Syncope and collapse (principal); I44.7 Left bundle-branch block, unspecified; I10 Essential (primary) hypertension; R00.2 Palpitations
CPT/HCPCS: 99213

== ENCOUNTER → 2024-04-10 15:05 | Outpatient (BNVA) | payer OTHER, SELFPAY | PROVIDERS: PCP Internal Medicine; Visit Provider Nurse Practitioner Family | DX: I44.7 Left bundle-branch block, unspecified (principal); R55 Syncope and collapse; I10 Essential (primary) hypertension; R00.2 Palpitations | CPT/HCPCS: 99212 ==

== ENCOUNTER 2024-07-27 09:36 | Outpatient (AMB) | payer OTHER, SELFPAY ==
--- NOTE | 2024-07-27 09:54 | MHC.PC.OV ---
Vital Signs 07/27/24 09:56 Height 4 ft 10 in Weight 141 lb BMI 29.5 BP 126/62 Blood Pressure Location Lt brachial Position Sitting Intake Visit Reasons: Annual exam Intake Note: Patient here for an annual physical exam Relations Manager Required: No Accompanied by: Self / Same As Patient Allergies aspirin [ASA] Allergy (Intermediate, Verified 07/27/24 10:21) STOMACH ULCER Calcium Channel Blocking Agent Allergy (Uncoded 07/27/24 10:21) Angioedema Lotrel Allergy (Uncoded 07/27/24 10:21) Angioedema Medication List - Last Reconciled 07/27/24 by Melissa Terrell MD amitriptyline 50 mg PO BEDTIME 90 days fluticasone propionate 44 mcg/actuation (Flovent HFA) 1 puff inhalation BID 30 days [incontinence wipes 4 packages per month] meclizine 25 mg PO TID PRN 30 days metoprolol tartrate 25 mg PO BID omeprazole 20 mg PO DAILY 90 days [pantyliner As directed] simvastatin 20 mg PO DAILY 90 days spironolactone 25 mg PO DAILY 90 days Ventolin HFA 90 mcg/actuation (albuterol sulfate) 2 puffs inhalation Q6H PRN 30 days NS Tobacco use date assessed: 01/20/24 Fall risk assessment: No Falls in past year Last assessed Fall Risk: 07/27/24 Dental Screening Dental Screen Date: 07/27/24 Did you have a dental visit in the last 12 months?: No Did you have a dental problem in the last 6 months where you did not have access to dental care?: No Was dental information given to patient?: Patient has dentist HPI HPI Comments History of Present Illness Details The patient is an 84-year-old female presenting for her physical exam. She reports experiencing chest pain but denies having shortness of breath. In November 2023 and this if follow by cardiology which did a recent stress test showing some ischemia. The patient had a mammogram which showed a left breast abnormality, followed by an ultrasound that detected a left breast cyst this year. No need for colonoscopy due to age. Has CKD Stage 3b follow by nephrology and secondary hyperparathyroidism as well. She also denies experiencing symptoms such as polyuria, polydipsia, or unintentional weight loss despite having a history of pre-diabetes.. There have been no reports of exacerbating or alleviating factors for her chest pain. - Mammogram conducted in 2023 indicating a left breast abnormality - Breast ultrasound in November showing a left breast cyst [facility] Medical History Moderate persistent asthma Vertigo Hyperparathyroidism Hip pain Mild asthma Impaired glucose tolerance Pure hypercholesterolemia Essential hypertension GERD (gastroesophageal reflux disease) Insomnia Surgical History History of cholecystectomy History of hysterectomy Family History Father No problems noted. Mother Diabetes mellitus Brother Cancer Social History Housing: Apartment Alcohol intake: never Patient Tobacco Use Status: Never used Tobacco e-Cigarette/Vaping Use: Never Used Second Hand Smoke Exposure: Yes service: No Current occupational status: retired Cognitive needs: No Hearing needs: No Vision needs: Yes Questionnaire PHQ-9 Over the last 2 weeks, how often have you been bothered by any of the following problems? 1. Little interest or pleasure in doing things: not at all 2. Feeling down, depressed, or hopeless: several days 3. Trouble falling or staying asleep, or sleeping too much: more than half the days 4. Feeling tired or having little energy: more than half the days 5. Poor appetite or overeating: more than half the days 6. Feeling bad about yourself - or that you are a failure or have let yourself or your family down: not at all 7. Trouble concentrating on things, such as reading the newspaper or watching television: more than half the days 8. Moving or speaking so slowly that other people could have noticed. Or the opposite - being so fidgety or restless that you have been moving around a lot more than usual: more than half the days 9. Thoughts that you would be better off or of hurting yourself in some way: more than half the days Total score: 13 Depression Screening Interpretation: Positive Depression Screening Follow-up: Existing condition and Follow-up Visit Requested Depression Screening Done: Yes 44033 - PHQ-9 Billing: Yes Source: Developed by Drs. Rigoberto Bartholomew, Sabrina Higginbotham, Ranulfo Jones and colleagues, with an educational laurence from [employer]. Thrive Questionnaire Date Thrive assessed: 01/20/24 I am a: Patient What is your living situation today?: I have a steady place to live Within the past 12 months, did the food you bought not last and you didn't have the money to get more?: Never true Within the past 12 months, did you worry whether your food would run out before you got money to buy more?: Never true Do you have trouble paying for medicines?: No Do you have trouble getting transportation to medical appointments?: No Do you have trouble paying your heating and electricity bill?: No Do you have trouble taking care of your child, family member or friend?: No Do you have trouble with day-to-day activities such as bathing, preparing meals, shopping, managing finances, etc.?: No Are you currently unemployed and looking for a job?: No Are you interested in more education?: No Please select the resources that you would like help with: None Currently or been in a relationship where the following occur: No concerns reported THRIVE Score: 0 AUDIT C Alcohol Use Questionnaire (AUDIT-C) 1. How often do you have a drink containing alcohol?: Never Total Score: 0 THAIS-7 AMB Questionnaire THAIS-7 Date THAIS - 7 assessed: 01/20/24 Feeling nervous, anxious, or on edge: 2 = More than half the days Not being able to stop or control worryin = More than half the days Worrying too much about different things: 0 = Not at all Trouble relaxin = Not at all Being so restless that it is hard to sit still: 2 = More than half the days Becoming easily annoyed or irritable: 0 = Not at all Feeling afraid as if something awful might happen: 0 = Not at all Total THAIS-7 score (0-4 normal; 5-9 mild; 10-14 moderate; 15-21 severe): 6 Source: Developed by Drs. Rigoberto Bartholomew, Sabrina Higginbotham, Ranulfo Jones and colleagues, with an educational laurence from [employer]. THAIS-7 Assessment Billing THAIS-7 Assessment Tool: THAIS-7 Assessment 53673 Review of Systems Const Details: - Endocrine: Denies polyuria, polydipsia - General: Denies unintentional weight loss - Respiratory: Denies shortness of breath - Cardiovascular: Reports chest pain Physical exam (Primary Care) Vital Signs: Last Vital Signs BP 126/62 07/27/24 09:56 BMI result Body Mass Index 29.5 BMI Assessment/Plan discussion: High BMI High, discussed plan: lifestyle, weight reduction, dietary and physical activity Tobacco/Smoking Status: Tobacco use Status Tobacco use date assessed 01/20/24 07/27/24 10:02 Patient Tobacco Use Status Never used Tobacco 07/27/24 10:02 e-Cigarette/Vaping Use Never Used 07/27/24 10:02 PHQ-9: PHQ-9 Score PHQ-9: Total score 13 07/27/24 10:22 Depression Screening Interpretation: Positive Depression Screening Follow-up: Existing condition and Follow-up Visit Requested Thrive Assessment: Date of Thrive Assessment Date Thrive assessed 01/20/24 07/27/24 10:02 Currently or been in a relationship where the following occur: No concerns reported Const Other: General: Cooperative, healthy appearing, comfortable, no acute distress and well developed Orientation: Patient oriented x3 Limitations: No limitations Head: Normal to inspection Ears: Hearing grossly normal bilaterally Nose: Normal external nose present Face and sinus: Normal facial exam Eyes: Appearance normal, both eyes and all related structures Neck: Normal visual inspection and Yes full ROM Respiratory: Normal respiratory effort and able to speak in complete sentences. Clear to auscultation bilaterally Cardiovascular: Regular rate and rhythm. Normal S1 and S2. Reports chest pain GI: Normal to inspection. Soft to palpation and nontender Skin: No rashes or lesions noted Neuro: Patient oriented x3 Extremities: Normal to inspection Coding Level of Care Code Est Pt Level 3 (33017) Est Pt Prev Care >65y(57700) Diagnoses Adult general medical exam Z00.00 Stage 3a chronic kidney disease N18.31 Chronic kidney disease stage 3 subtype: stage 3a (GFR 45-59) Hyperparathyroidism E21.3 Skin lesion L98.9 Additional Codes THAIS-7 Assessment Billing - THAIS-7 Assessment Tool: THAIS-7 Assessment 43194 ([id number]) PHQ-9 - 88961 - PHQ-9 Billing: Yes ([id number]) Time Spent (min) 33 Assessment & Plan Assessment & Plan (1) Adult general medical exam: Code(s): Z00.00 - Encounter for general adult medical examination without abnormal findings Category: Medical (2) CKD (chronic kidney disease) stage 3, GFR 30-59 ml/min: Code(s): N18.30 - Chronic kidney disease, stage 3 unspecified Category: Medical Qualifiers: Chronic kidney disease stage 3 subtype: stage 3a (GFR 45-59) Qualified Code(s): N18.31 - Chronic kidney disease, stage 3a (3) Hyperparathyroidism: Code(s): E21.3 - Hyperparathyroidism, unspecified Category: Medical (4) Skin lesion: Code(s): L98.9 - Disorder of the skin and subcutaneous tissue, unspecified Category: Medical Plan - Monitor and manage pre-glucose tolerance status to prevent progression to diabetes. - Further evaluation of chest pain with Cardiology. - Repeat physical exam in a year. - Refer to Dermatology for her pruritic skin lesion in right leg. Patient was informed and verbally consented to the use of an ambient scribe for clinic note documentation during this visit. During our consultation, we discussed the presence of a left breast cyst found on a recent ultrasound which was benign and the history of pre-glucose tolerance. I informed the patient of the importance of monitoring her glucose tolerance status closely, emphasizing avoiding risk factors that might accelerate any deterioration of her glucose levels. We deliberated over her current chest pain and I explained the necessity of further diagnostic work to ascertain the cause. I addressed the implications of her mammogram and ultrasound findings, describing how these results influence her care moving forward including potential need for additional breast imaging or consultation with a specialist if symptoms arise or progress. I recommended lifestyle modifications to mitigate the risk related to her glucose tolerance and advised on awareness of symptoms that would necessitate immediate medical evaluation, such as an increase in chest pain frequency or intensity. Orders: Orders Lipid Panel Today E78.5 - Hyperlipidemia, unspecified Vitamin D 25-OH Total Today E55.9 - Vitamin D deficiency, unspecified Comprehensive [place]. Panel Fast Today Z00.00 - Encounter for general adult medical examination without abnormal findings Referrals Dermatology Referral L98.9 - Disorder of the skin and subcutaneous tissue, unspecified
[2024-07-27 09:56] VITALS: BP 126/62; BMI 29.5
== END 2024-07-27 10:34 | disposition home or self-care (01) ==
PROVIDERS: PCP Internal Medicine; Visit Provider Internal Medicine
DX: Z00.00 Encounter for general adult medical examination without abnormal findings (principal); N18.31 Chronic kidney disease, stage 3a; E21.3 Hyperparathyroidism, unspecified; L98.9 Disorder of the skin and subcutaneous tissue, unspecified

== ENCOUNTER → 2024-07-27 09:36 | Outpatient (BNVA) | payer OTHER, SELFPAY | PROVIDERS: PCP Internal Medicine; Visit Provider Internal Medicine | DX: Z00.00 Encounter for general adult medical examination without abnormal findings (principal); N18.31 Chronic kidney disease, stage 3a; E21.3 Hyperparathyroidism, unspecified; L98.9 Disorder of the skin and subcutaneous tissue, unspecified | CPT/HCPCS: 96127; 99397 ==

== ENCOUNTER 2024-08-30 09:53 | Outpatient (REF) | payer OTHER, SELFPAY ==
--- NOTE | ~2024-08-30 | MM_ITS ---
EXAMINATION: Dual-Energy X-ray Absorptiometry - Bone Density Study HISTORY: Estrogen deficiency TECHNIQUE: [employer] Dual energy absorptiometry (DEXA) of the lumbar spine, total left hip, and femoral neck was performed. COMPARISON: Comparison is made with the prior examination dated 07/16/2022. FINDINGS: The bone mineral density of the lumbar spine is 1.293 with a T-score of 0.9, and a Z-score of 2.8. This represents a BMD change of 6.3% compared to the prior exam. This is statistically significant. The bone mineral density of the left total hip is 0.983 with a T-score of -0.2, and a Z-score of 1.9. This represents BMD change of 1.9% compared to the prior exam. This is not statistically significant. The bone mineral density of the left femoral neck is 0.951 with a T-score of -0.6, and a Z-score of 1.6. This represents BMD change of -0.6% compared to the prior exam. The bone mineral density of the distal radius is 0.809 with a T score of -0.8 and a Z score of 2.2. MM/XR DEXA appendicular skeleton IMPRESSION: Based on bone mineral density, and according to World Health Organization (WHO) criteria, the diagnosis is consistent with normal bone mineral density. All bone density values are in grams per centimeter squared. At this facility, the least significant change in BMD with 95% confidence is 0.022 at the lumbar spine, 0.027 at the hip, and 0.023 at the distal 1/3 radius. Electronically signed by: Rigoberto Newell MD 08/30/2024 02:18 PM [facility]
== END 2024-08-30 09:54 | disposition home or self-care (01) ==
LOC: HO.MAMMO 09:53
PROVIDERS: PCP Internal Medicine; Visit Provider Internal Medicine
DX: N95.9 Unspecified menopausal and perimenopausal disorder (principal)
CPT/HCPCS: 77081

== ENCOUNTER → 2024-08-30 10:00 | Outpatient (BNV) | payer OTHER, SELFPAY | PROVIDERS: PCP Internal Medicine; Visit Provider Radiology Diagnostic Radiology | DX: E28.39 Other primary ovarian failure (principal) | CPT/HCPCS: 77081 ==

== ENCOUNTER 2024-09-29 09:56 | Outpatient (REF) | payer OTHER, SELFPAY ==
--- OUTSIDE RECORDS SUMMARY | 2024-09-29 10:34 | XMS_ITS | Clinical Summary ---
Author Organization [facility] Address [address] [place] [address] Phone Care Team Providers Care Law Office Receptionist Name Role Phone Melissa Broderick MD Primary Care Provider [phone] Allergies Active Allergy Reactions Criticality Noted Date Comments Amlodipine Besylate-Valsartan Other (see comments) 01/16/2019 Aspirin Other (see comments) 12/27/2020 Medications Multiple Vitamins-Minera ls (CENTRUM SILVER 50+WOMEN PO) Take 1 tablet by mouth 1 (one) time each day Active [place]-3 Fatty Acids (FISH OIL PO) Take 1 capsule by mouth 1 (one) time each day Active albuterol 0.63 MG/3ML nebulizer solution Active amitriptyline (ELAVIL) 50 MG tablet Take 50 mg by mouth at bed time 1 Active Melatonin 5 MG capsule Take 1 capsule by mouth 1 (one) time each day Active omeprazole (PriLOSEC) [address] capsule Take 1 capsule by mouth 1 (one) time each day Active simvastatin (ZOCOR) 20 MG tablet Take 1 tablet by mouth 1 (one) time each day Active meclizine (ANTIVERT) 25 MG tablet TAKE 1 TABLET BY MOUTH THREE TIMES DAILY NEEDED FOR DIZZINESS 1 Active spironolactone- hydroCHLOROthia zide (ALDACTAZIDE) 25-25 MG per tablet Take 0.5 tablets by mouth 1 (one) time each day 45 tablet 3 3 Active metoprolol tartrate 25 MG tablet Take 1 tablet (25 mg total) by mouth in the morning and 1 tablet (25 mg total) in the evening. 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 Chronic kidney disease 12/27/2020 Hypertensive disorder 12/27/2020 Family History Medical History Relation Comments Diabetes Mother Heart disease Mother Hypertension Mother Hypertension Sibling 1 Diabetes Sibling 2 Heart disease Sibling 3 Cancer Sibling 4 bone Relation Status Comments Father Unknown Mother Sibling 1 Sibling 2 Sibling 3 Sibling 4 Social History Tobacco Use Types Packs/Day Years Used Date Smoking Tobacco: Never Smokeless Tobacco: Never Tobacco Cessation:Counseling Given: Not Answered Alcohol Use Standard Drinks/Week Comments No 0 (1 standard drink = 0.6 oz pur e alcohol) Comments Unknown Sex and Gender Information Value Date Recorded Sex Assigned at Not on file Legal Sex Female 4:51 PM EST Gender Identity Not on file Sexual Orientation Not on file Last Filed Vital Signs Vital Sign Reading Time Taken Comments Blood Pressure 127/63 04/05/2023 3:02 PM EDT Pulse 66 04/05/2023 3:02 PM EDT Temperature - - Respiratory Rate - - Oxygen Saturation 99% 04/05/2023 3:02 PM EDT Inhaled Oxygen Concentration - - Weight 63.5 kg (140 lb) 04/05/2023 3:02 PM EDT Height 152.4 cm (5') 09/24/2022 12:48 PM EST Body Mass Index 27.34 09/24/2022 12:48 PM EST Plan of Treatment Health Maintenance Due Date Last Done Comments Pneumococcal Vaccine: 65+ Ye ars (1 of 2 - PCV) 1946 Influenza Vaccine (#1) 2024 Hepatitis B Vaccine Aged Out No longe r eligible based on patient's age to complete this topic Insurance [facility] ([id number]) [facility] ([id number]) Care Teams Law Office Receptionist Relationship Specialty Start Date End Date Melissa Broderick MD [address] [place], [place] PCP - General 08/26/20
== END 2024-09-29 09:57 | disposition home or self-care (01) ==
LOC: HO.MAMMO 09:56
PROVIDERS: PCP Internal Medicine; Visit Provider Internal Medicine
DX: Z12.31 Encounter for screening mammogram for malignant neoplasm of breast (principal)
CPT/HCPCS: 77063; 77067

== ENCOUNTER → 2024-09-29 10:00 | Outpatient (BNV) | payer OTHER, SELFPAY | PROVIDERS: PCP Internal Medicine; Visit Provider Internal Medicine | DX: Z12.31 Encounter for screening mammogram for malignant neoplasm of breast (principal) | CPT/HCPCS: 77063; 77067 ==

== ENCOUNTER 2024-10-11 08:54 | Outpatient (REF) | payer OTHER, SELFPAY ==
[2024-10-11 09:39] LABS: Hemoglobin 13.9 g/dl (12.0-16.0); Mean Corpuscular HGB Conc 35.6 g/dl (31.0-35.0); Mean Corpuscular Hemoglobin 31.2 pg (27.0-33.0); Mean Corpuscular Volume 87.4 fL (80.0-98.0); Mean Platelet Volume 10.1 fL (9.4-12.3); Platelet Count 163 X10*3/uL (160-400); Red Blood Count 4.46 X10*6/uL (4.20-5.50); Red Cell Distribution Width 12.9 % (11.0-16.0); White Blood Count 5.2 X10*3/uL (4.8-10.8)
--- OUTSIDE RECORDS SUMMARY | 2024-10-11 09:42 | XMS_ITS | Clinical Summary ---
Author Organization [facility] Address [address] [place] [address] Phone Care Team Providers Care Bead Picker Name Role Phone Melissa Broderick MD Primary Care Provider [phone] Allergies Active Allergy Reactions Criticality Noted Date Comments Amlodipine Besylate-Valsartan Other (see comments) 01/16/2019 Aspirin Other (see comments) 12/27/2020 Medications Multiple Vitamins-Minera ls (CENTRUM SILVER 50+WOMEN PO) Take 1 tablet by mouth 1 (one) time each day Active [place]-3 Fatty Acids (FISH OIL PO) Take 1 [...] patient's age to complete this topic Insurance [facility] ([id number]) [facility] ([id number]) Care Teams Bead Picker Relationship Specialty Start Date End Date Melissa Broderick MD [address] [place], [place] PCP - General 08/26/20
[2024-10-11 10:13] LABS: Anion Gap 12 (12-20); Blood Urea Nitrogen 26 mg/dL (9-16); Calcium 9.7 mg/dL (8.4-10.2); Carbon Dioxide 26 mmol/L (22-29); Chloride 105 mmol/L (96-108); Estimated Glomerular Filt Rate 43; Glucose Random 113 mg/dL (60-115); Phosphorus 3.3 mg/dL (2.7-4.5); Potassium 4.5 mmol/L (3.3-5.1); Sodium 138 mmol/L (135-145)
[2024-10-11 10:50] LABS: Parathyroid Hormone Intact 100.7 pg/mL (8.7-77.1)
== END 2024-10-11 08:55 | disposition home or self-care (01) ==
LOC: HO.LAB 08:54
PROVIDERS: PCP Internal Medicine; Visit Provider Internal Medicine Hypertension Specialist
DX: N18.30 Chronic kidney disease, stage 3 unspecified (principal)
CPT/HCPCS: 36415; 80048; 83970; 84100; 85027

== ENCOUNTER 2024-10-12 14:37 | Outpatient (AMB) | payer OTHER, SELFPAY ==
[2024-10-12 14:42] VITALS: BP 120/52; BMI 29.3
--- NOTE | 2024-10-12 14:42 | HO.NEPHOV_ITS ---
Vital Signs 10/12/24 14:42 Height 4 ft 10 in Weight 140 lb BMI 29.3 BP 120/52 L Blood Pressure Location Lt brachial Position Sitting Intake Visit Reasons: CKD/ 1 Year FU/ Conf Market Development Director Required: No Accompanied by: Daughter Allergies aspirin [ASA] Allergy (Intermediate, Verified 10/12/24 14:44) STOMACH ULCER Calcium Channel Blocking Agent Allergy (Uncoded 07/27/24 10:21) Angioedema Lotrel Allergy (Uncoded 07/27/24 10:21) Angioedema Medication List - Last Reconciled 10/12/24 by Ray Castillo MD amitriptyline 50 mg PO BEDTIME 90 days fluticasone propionate 44 mcg/actuation (Flovent HFA) 1 puff inhalation BID 30 days [incontinence wipes 4 packages per month] meclizine 25 mg PO TID PRN 30 days metoprolol tartrate 25 mg PO BID omeprazole 20 mg PO DAILY 90 days [pantyliner As directed] simvastatin 20 mg PO DAILY 90 days spironolactone 25 mg PO DAILY 90 days Ventolin HFA 90 mcg/actuation (albuterol sulfate) 2 puffs inhalation Q6H PRN 30 days NS HPI Comments Details: 83 year old female with hypertension, GERD, pure hypercholesterolemia, impaired glucose tolerance and hyperparathyroidism that comes today for follow up on her condtions. Accompanied by her daughter h/o NI Recently had a syncopal episode 10/12/24 Overall doing well No new issues PFSH Medical History Moderate persistent asthma Vertigo Hyperparathyroidism Hip pain Mild asthma Impaired glucose tolerance Pure hypercholesterolemia Essential hypertension GERD (gastroesophageal reflux disease) Insomnia Surgical History History of cholecystectomy History of hysterectomy Family History Father No problems noted. Mother Diabetes mellitus Brother Cancer Social History Housing: Apartment Alcohol intake: never Patient Tobacco Use Status: Never used Tobacco e-Cigarette/Vaping Use: Never Used Second Hand Smoke Exposure: Yes service: No Current occupational status: retired Cognitive needs: No Hearing needs: No Vision needs: Yes Physical Exam Vital Signs: Last Vital Signs BP 120/52 L 10/12/24 14:42 BMI result Body Mass Index 29.3 Const General: comfortable and no acute distress Orientation/consciousness: patient oriented x3 HEENT Other: Unremarkable Head: Yes normal to inspection Neck Neck: Yes normal visual inspection Chest Chest palpation & inspection: normal inspection of the chest Resp Auscultation: clear to auscultation bilaterally Cardio Palpation: normal PMI Heart sounds: S1 normal heart sound present, S2 normal heart sound present, no gallops, no murmurs and no rubs GI Palpation (GI): Soft to palpation Back/Spine/Pelvis Other: unremarkable Skin General skin exam: no rashes or lesions noted Neuro General: patient oriented x3 Extrem General: Yes normal to inspection Psych Mental Status: mental status grossly normal Results Reviewed Nephrology Results: Hgb 13.9 g/dl (12.0-16.0) 10/11/24 WBC 5.2 X10*3/uL (4.8-10.8) 10/11/24 Plt Count 163 X10*3/uL (160-400) 10/11/24 Sodium 138 mmol/L (135-145) 10/11/24 Potassium 4.5 mmol/L (3.3-5.1) 10/11/24 Chloride 105 mmol/L (96-108) 10/11/24 Carbon Dioxide 26 mmol/L (22-29) 10/11/24 BUN 26 mg/dL (9-16) H 10/11/24 Creatinine 1.19 mg/dL (0.5-1.4) 10/11/24 Calcium 9.7 mg/dL (8.4-10.2) 10/11/24 Phosphorus 3.3 mg/dL (2.7-4.5) 10/11/24 PTH Intact 100.7 pg/mL (8.7-77.1) H 10/11/24 Assessment & Plan Assessment & Plan (1) Essential hypertension: Code(s): I10 - Essential (primary) hypertension Category: Medical Plan: BP well controlled Low salt diet No change in meds (2) CKD (chronic kidney disease) stage 3, GFR 30-59 ml/min: Code(s): N18.30 - Chronic kidney disease, stage 3 unspecified Category: Medical Qualifiers: Chronic kidney disease stage 3 subtype: stage 3a (GFR 45-59) Qualified Code(s): N18.31 - Chronic kidney disease, stage 3a Plan: Stable 3 B in a setting of HTN and 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 Overall stable Avoid nephrotoxins Increase PO fluid intake (3) Hyperparathyroidism: Code(s): E21.3 - Hyperparathyroidism, unspecified Category: Medical Plan: Secondary Due to CKD Ca normal Watch for now (4) LBBB (left bundle branch block): Code(s): I44.7 - Left bundle-branch block, unspecified Category: Medical Plan: Follow up with cardiology Orders: Orders Basic Metabolic Panel 1 Year I44.7 - Left bundle-branch block, unspecified, N18.31 - Chronic kidney disease, stage 3a Parathyroid Hormone Intact Today I44.7 - Left bundle-branch block, unspecified, N18.31 - Chronic kidney disease, stage 3a Coding Level of Care Code Est Pt Level 4 (28503) Diagnoses Essential hypertension I10 Stage 3a chronic kidney disease N18.31 Chronic kidney disease stage 3 subtype: stage 3a (GFR 45-59) Hyperparathyroidism E21.3 LBBB (left bundle branch block) I44.7
--- OUTSIDE RECORDS SUMMARY | 2024-10-12 17:58 | XMS_ITS | Clinical Summary ---
Author Organization [facility] Address [address] [place] [address] Phone Care Team Providers Care Raymond Mill Operator Name Role Phone Melissa Broderick MD Primary Care Provider [phone] Allergies Active Allergy Reactions Criticality Noted Date Comments Amlodipine Besylate-Valsartan Other (see comments) 01/16/2019 Aspirin Other (see comments) 12/27/2020 Medications Multiple Vitamins-Minera ls (CENTRUM SILVER 50+WOMEN PO) Take 1 tablet by mouth 1 (one) time each day Active [place]-3 Fatty Acids (FISH OIL PO) Take 1 [...] patient's age to complete this topic Insurance [facility] ([id number]) [facility] ([id number]) Care Teams Raymond Mill Operator Relationship Specialty Start Date End Date Melissa Broderick MD [address] [place], [place] PCP - General 08/26/20
== END 2024-10-12 14:56 | disposition home or self-care (01) ==
PROVIDERS: PCP Internal Medicine; Visit Provider Internal Medicine Hypertension Specialist
DX: I10 Essential (primary) hypertension (principal); N18.31 Chronic kidney disease, stage 3a; E21.3 Hyperparathyroidism, unspecified; I44.7 Left bundle-branch block, unspecified
CPT/HCPCS: 99214

== ENCOUNTER → 2024-10-12 14:37 | Outpatient (BNVA) | payer OTHER, SELFPAY | PROVIDERS: PCP Internal Medicine; Visit Provider Internal Medicine Hypertension Specialist | DX: I12.9 Hypertensive chronic kidney disease with stage 1 through stage 4 chronic kidney disease, or unspecified chronic kidney disease (principal); N18.31 Chronic kidney disease, stage 3a; I44.7 Left bundle-branch block, unspecified; E21.3 Hyperparathyroidism, unspecified | CPT/HCPCS: 99212 ==

== ENCOUNTER 2025-01-25 10:08 | Outpatient (AMB) | payer OTHER, SELFPAY ==
[2025-01-25 10:25] VITALS: BP 128/60; BMI 29.0
--- NOTE | 2025-01-25 10:25 | A.OFFPC_ITS ---
Vital Signs 01/25/25 10:25 Height 4 ft 10 in Weight 139 lb BMI 29.0 BP 128/60 Blood Pressure Location Lt brachial Position Sitting Intake Visit Reasons: depression Crop Or Livestock Tenant Farmer Required: No Accompanied by: Daughter Allergies aspirin [ASA] Allergy (Intermediate, Verified 01/25/25 10:43) STOMACH ULCER Calcium Channel Blocking Agent Allergy (Uncoded 01/25/25 10:43) Angioedema Lotrel Allergy (Uncoded 01/25/25 10:43) Angioedema Medication List - Last Reconciled 01/25/25 by Melissa Terrell MD amitriptyline 50 mg PO BEDTIME 90 days fluticasone propionate 44 mcg/actuation 1 puff inhalation BID 30 days [incontinence wipes 4 packages per month] [lift chair As directed] meclizine 25 mg PO TID PRN 30 days metoprolol tartrate 25 mg PO BID omeprazole 20 mg PO DAILY 90 days [pantyliner As directed] simvastatin 20 mg PO DAILY 90 days spironolactone 25 mg PO DAILY 90 days Ventolin HFA 90 mcg/actuation (albuterol sulfate) 2 puffs inhalation Q6H PRN 30 days NS Tobacco use date assessed: 01/25/25 Fall risk assessment: No Falls in past year Last assessed Fall Risk: 01/25/25 Dental Screening Dental Screen Date: 01/25/25 Did you have a dental visit in the last 12 months?: No Did you have a dental problem in the last 6 months where you did not have access to dental care?: No Was dental information given to patient?: Patient has dentist HPI HPI Comments History of Present Illness Details The patient is an 84-year-old female presenting for a follow-up visit to review laboratory results and manage chronic conditions. 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 The patient is currently on amitriptyline 50 mg at night for depression, which she reports is effective, as indicated by a negative PHQ-9 score. She also experiences dizziness for which she takes meclizine. Her medication regimen includes metoprolol 25 mg twice daily for hypertension, omeprazole for gastroesophageal reflux disease, simvastatin 20 mg for hyperlipidemia, and spironolactone 25 mg for blood pressure management. She previously experienced angioedema with lisinopril, which was discontinued. Recent laboratory results from September indicate a GFR of 43, suggesting chronic kidney disease, and a random blood glucose level of 113 mg/dL. Her phosphorus levels were normal, but parathyroid hormone levels were elevated, indicating hyperparathyroidism. The patient has experienced weight fluctuations, with recent weights recorded as 139 lbs, 140 lbs, and 141 lbs over the past few months. Her BMI is currently 29, and she is not considered obese. [facility] Medical History (Updated 11/10/24 @ 17:10 by Melissa Terrell MD) Moderate persistent asthma Vertigo Hyperparathyroidism Hip pain Mild asthma Impaired glucose tolerance Pure hypercholesterolemia Essential hypertension GERD (gastroesophageal reflux disease) Insomnia Surgical History History of cholecystectomy History of hysterectomy Family History Father No problems noted. Mother Diabetes mellitus Brother Cancer Social History Housing: Apartment Alcohol intake: never Patient Tobacco Use Status: Never used Tobacco e-Cigarette/Vaping Use: Never Used Second Hand Smoke Exposure: Yes service: No Current occupational status: retired Cognitive needs: No Hearing needs: No Vision needs: Yes Questionnaire PHQ-9 Over the last 2 weeks, how often have you been bothered by any of the following problems? 1. Little interest or pleasure in doing things: not at all 2. Feeling down, depressed, or hopeless: not at all 3. Trouble falling or staying asleep, or sleeping too much: not at all 4. Feeling tired or having little energy: not at all 5. Poor appetite or overeating: not at all 6. Feeling bad about yourself - or that you are a failure or have let yourself or your family down: not at all 7. Trouble concentrating on things, such as reading the newspaper or watching television: not at all 8. Moving or speaking so slowly that other people could have noticed. Or the opposite - being so fidgety or restless that you have been moving around a lot more than usual: not at all 9. Thoughts that you would be better off or of hurting yourself in some way: not at all Total score: 0 Depression Screening Interpretation: Negative Depression Screening Done: Yes 13971 - PHQ-9 Billing: Yes Source: Developed by Drs. Rigoberto Bartholomew, Sabrina Higginbotham, Ranulfo Jones and colleagues, with an educational laurence from [employer] & other things you bake. Thrive Questionnaire Date Thrive assessed: 01/25/25 I am a: Patient What is your living situation today?: I have a steady place to live Within the past 12 months, did the food you bought not last and you didn't have the money to get more?: Never true Within the past 12 months, did you worry whether your food would run out before you got money to buy more?: Never true Do you have trouble paying for medicines?: No Do you have trouble getting transportation to medical appointments?: No Do you have trouble paying your heating and electricity bill?: No Do you have trouble taking care of your child, family member or friend?: No Do you have trouble with day-to-day activities such as bathing, preparing meals, shopping, managing finances, etc.?: No Are you currently unemployed and looking for a job?: No Are you interested in more education?: No Please select the resources that you would like help with: None Currently or been in a relationship where the following occur: No concerns reported THRIVE Score: 0 AUDIT C Alcohol Use Questionnaire (AUDIT-C) 1. How often do you have a drink containing alcohol?: Never Total Score: 0 Score Reviewed/Action Taken: No THAIS-7 AMB Questionnaire THAIS-7 Date THAIS - 7 assessed: 01/25/25 Feeling nervous, anxious, or on edge: 0 = Not at all Not being able to stop or control worryin = Not at all Worrying too much about different things: 0 = Not at all Trouble relaxin = Not at all Being so restless that it is hard to sit still: 0 = Not at all Becoming easily annoyed or irritable: 0 = Not at all Feeling afraid as if something awful might happen: 0 = Not at all Total THAIS-7 score (0-4 normal; 5-9 mild; 10-14 moderate; 15-21 severe): 0 Source: Developed by Drs. Rigoberto Bartholomew, Ranulfo Lizarraga and colleagues, with an educational laurence from [employer] & other things you bake. THAIS-7 Assessment Billing THAIS-7 Assessment Tool: THAIS-7 Assessment 26830 Review of Systems Const All systems reviewed & are unremarkable except as noted in HPI and below Card Denies chest pain at rest, Denies chest pain with activity, Denies edema, Denies irregular heart rhythm, Denies claudication, Denies dyspnea, Denies dyspnea on exertion, Denies orthopnea, Denies paroxysmal nocturnal dyspnea and Denies slow heart rate Resp Denies cough, Denies dyspnea and Denies dyspnea on exertion Physical exam (Primary Care) Vital Signs: Last Vital Signs BP 128/60 01/25/25 10:25 BMI result Body Mass Index 29.0 Tobacco/Smoking Status: Tobacco use Status Tobacco use date assessed 01/25/25 01/25/25 10:29 Patient Tobacco Use Status Never used Tobacco 01/25/25 10:29 e-Cigarette/Vaping Use Never Used 01/25/25 10:29 PHQ-9: PHQ-9 Score PHQ-9: Total score 0 01/25/25 10:45 Depression Screening Interpretation: Negative Thrive Assessment: Date of Thrive Assessment Date Thrive assessed 01/25/25 01/25/25 10:29 Currently or been in a relationship where the following occur: No concerns reported Resp Effort & Inspection: normal respiratory effort Auscultation: clear to auscultation bilaterally Cardio Jugular venous distension: no JVD Rate: regular rate Rhythm: regular rhythm Heart sounds: S1 normal heart sound present and S2 normal heart sound present Extrem General: Yes full ROM Coding Level of Care Code Est Pt Level 4 (52821) Complex EM visit Add On G2211 Diagnoses Stage 3a chronic kidney disease N18.31 Chronic kidney disease stage 3 subtype: stage 3a (GFR 45-59) Hyperparathyroidism E21.3 Essential hypertension I10 Gastroesophageal reflux disease, unspecified whether esophagitis present K21.9 Esophagitis presence: esophagitis presence not specified Pure hypercholesterolemia E78.00 Additional Codes THAIS-7 Assessment Billing - THAIS-7 Assessment Tool: THAIS-7 Assessment 80476 ([id number]) PHQ-9 - 16534 - PHQ-9 Billing: Yes ([id number]) Time Spent (min) 22 Assessment & Plan Assessment & Plan (1) CKD (chronic kidney disease) stage 3, GFR 30-59 ml/min: Code(s): N18.30 - Chronic kidney disease, stage 3 unspecified Category: Medical Qualifiers: Chronic kidney disease stage 3 subtype: stage 3a (GFR 45-59) Qualified Code(s): N18.31 - Chronic kidney disease, stage 3a (2) Hyperparathyroidism: Code(s): E21.3 - Hyperparathyroidism, unspecified Category: Medical (3) Essential hypertension: Code(s): I10 - Essential (primary) hypertension Category: Medical (4) GERD (gastroesophageal reflux disease): Code(s): K21.9 - Gastro-esophageal reflux disease without esophagitis Category: Medical Qualifiers: Esophagitis presence: esophagitis presence not specified Qualified Code(s): K21.9 - Gastro-esophageal reflux disease without esophagitis (5) Pure hypercholesterolemia: Code(s): E78.00 - Pure hypercholesterolemia, unspecified Category: Medical Plan The patient will continue her current medication regimen, including amitriptyline for depression, meclizine for dizziness, metoprolol and spironolactone for hypertension, omeprazole for gastroesophageal reflux disease, and simvastatin for hyperlipidemia. Due to her history of angioedema, aspirin and calcium channel blockers will remain contraindicated. A follow-up bone density scan is planned to monitor her bone health, given her elevated parathyroid hormone levels. Laboratory tests, including renal function and fasting glucose, will be repeated in July to assess her chronic kidney disease and monitor her glucose levels. An electrocardiogram will be conducted in July to evaluate the effects of metoprolol and amitriptyline on her cardiac health. Patient was informed and verbally consented to the use of an ambient scribe for clinic note documentation during this visit. During the visit, I discussed with the patient the importance of continuing her current medications and avoiding aspirin and calcium channel blockers due to her history of angioedema. We reviewed her recent lab results, noting the need for follow-up tests in July to monitor her kidney function and glucose levels. I also explained the plan to conduct an electrocardiogram in July to assess the impact of her medications on her heart health. Orders: Orders Calcium, Ionized 6 Months E21.3 - Hyperparathyroidism, unspecified Parathyroid Hormone Intact 6 Months E21.3 - Hyperparathyroidism, unspecified Lipid Panel 6 Months E78.5 - Hyperlipidemia, unspecified ECG 12 lead EKG 6 Months I44.7 - Left bundle-branch block, unspecified Vitamin D 25-OH Total 6 Months E21.3 - Hyperparathyroidism, unspecified, E55.9 - Vitamin D deficiency, unspecified Phosphorus 6 Months E21.3 - Hyperparathyroidism, unspecified Comprehensive Jud. Panel Fast 6 Months E21.3 - Hyperparathyroidism, unspecified Patient Instructions: - Continue taking all prescribed medications as directed. - Avoid aspirin and calcium channel blockers due to allergy. - Return in July for follow-up lab tests and an electrocardiogram.
--- OUTSIDE RECORDS SUMMARY | 2025-01-25 11:37 | XMS_ITS | Clinical Summary ---
Author Organization [facility] Address [address] [place] [address] Phone Care Team Providers Care Sourcing Intern Name Role Phone Melissa Broderick MD Primary Care Provider [phone] Allergies Active Allergy Reactions Criticality Noted Date Comments Amlodipine Besylate-Valsartan Other (see comments) 01/16/2019 Aspirin Other (see comments) 12/27/2020 Medications Multiple Vitamins-Minera ls (CENTRUM SILVER 50+WOMEN PO) Take 1 tablet by mouth 1 (one) time each day Active [place]-3 Fatty Acids (FISH OIL PO) Take 1 [...] Due Date Last Done Comments Pneumococcal Vaccine: 50+ Ye ars (1 of 2 - PCV) 1959 Influenza Vaccine (Season Ended) 2025 Hepatitis B Vaccine Aged Out No longe r eligible based on patient's age to complete this topic Insurance [facility] ([id number]) [facility] ([id number]) Care Teams Sourcing Intern Relationship Specialty Start Date End Date Melissa Broderick MD [address] [place], [place] PCP - General 08/26/20
== END 2025-01-25 10:53 | disposition home or self-care (01) ==
LOC: HO.HMCH 10:08
PROVIDERS: PCP Internal Medicine; Visit Provider Internal Medicine
DX: N18.31 Chronic kidney disease, stage 3a (principal); E21.3 Hyperparathyroidism, unspecified; I10 Essential (primary) hypertension; K21.9 Gastro-esophageal reflux disease without esophagitis; E78.00 Pure hypercholesterolemia, unspecified

== ENCOUNTER → 2025-01-25 10:08 | Outpatient (BNVA) | payer OTHER, SELFPAY | PROVIDERS: PCP Internal Medicine; Visit Provider Internal Medicine | DX: I12.9 Hypertensive chronic kidney disease with stage 1 through stage 4 chronic kidney disease, or unspecified chronic kidney disease (principal); N18.31 Chronic kidney disease, stage 3a; F32.A Depression, unspecified; K21.9 Gastro-esophageal reflux disease without esophagitis; E78.5 Hyperlipidemia, unspecified; E21.3 Hyperparathyroidism, unspecified; E78.00 Pure hypercholesterolemia, unspecified; I44.7 Left bundle-branch block, unspecified; E55.9 Vitamin D deficiency, unspecified; Z79.899 Other long term (current) drug therapy | CPT/HCPCS: 96127; 99212 ==

== ENCOUNTER 2025-04-23 09:41 | Outpatient (AMB) | payer OTHER, SELFPAY ==
[2025-04-23 10:00] VITALS: BP 134/62; PULSE 61; BMI 29.5
--- NOTE | 2025-04-23 10:00 | A.OFFVIS_ITS ---
Vital Signs 04/23/25 10:00 Height 4 ft 10 in Weight 141 lb 1.533 oz BMI 29.5 BP 134/62 Blood Pressure Location Lt brachial Position Sitting Pulse 61 Pulse Source Monitor Intake Visit Reasons: r/s 03/19-04/19 1 yr foollowup w/ekg Allergies aspirin (ASA) Allergy (Intermediate, Verified 04/23/25 10:04) STOMACH ULCER Calcium Channel Blocking Agent Allergy (Uncoded 04/23/25 10:04) Angioedema Lotrel Allergy (Uncoded 04/23/25 10:04) Angioedema Medication List - Last Reconciled 04/23/25 by KELSY Young amitriptyline 50 mg PO BEDTIME 90 days fluticasone propionate 44 mcg/actuation 1 puff inhalation BID 30 days [incontinence wipes 4 packages per month] [lift chair As directed] meclizine 25 mg PO TID PRN 30 days metoprolol tartrate 25 mg PO BID omeprazole 20 mg PO DAILY 90 days [pantyliner As directed] simvastatin 20 mg PO DAILY 90 days spironolactone 25 mg PO DAILY 90 days Ventolin HFA 90 mcg/actuation (albuterol sulfate) 2 puffs inhalation Q6H PRN 30 days NS HPI HPI r/s 03/19-04/19 1 yr foollowup w/ekg: Details: Aditi is an 84-year-old female with past medical history of left bundle branch block with normal EF, syncopal episode, chest discomfort who presents for follow-up. Today she reports that she has been getting occasional discomfort in her chest that occurs randomly, nonexertional. She is having difficulty describing it but states that it lasts only brief. This is the same discomfort that she reported over a year ago. Nuclear stress test around that time was normal. She says this symptom has not increased over the last year however she is still expressing concern. No shortness of breath, PND, orthopnea or edema. No lightheadedness, presyncope, syncope, falls. Taking all meds as directed. Daughter is present and assisting with Hebrew translation at their request. [facility] Medical History Moderate persistent asthma Vertigo Hyperparathyroidism Hip pain Mild asthma Impaired glucose tolerance Pure hypercholesterolemia Essential hypertension GERD (gastroesophageal reflux disease) Insomnia Surgical History History of cholecystectomy History of hysterectomy Family History Father No problems noted. Mother Diabetes mellitus Brother Cancer Social History Housing: Apartment Alcohol intake: never Patient Tobacco Use Status: Never used Tobacco e-Cigarette/Vaping Use: Never Used Second Hand Smoke Exposure: Yes service: No Current occupational status: retired Cognitive needs: No Hearing needs: No Vision needs: Yes Review of Systems Const All systems reviewed & are unremarkable except as noted in HPI and below ENT Denies dizziness Card Reports chest pain, Denies chest pain at rest, Denies chest pain with activity, Denies rapid heart rate, Denies pedal edema, Denies edema, Denies leg edema, Denies lightheadedness, Denies palpitations, Reports dyspnea, Reports dyspnea on exertion and Denies orthopnea Resp Denies cough, Reports dyspnea and Reports dyspnea on exertion GI Denies hematochezia and Denies change in stool character Musc Denies abnormal gait, Denies limited range of motion, Denies muscle cramps, Denies muscle weakness, Denies numbness, Denies radiating pain into limb, Denies stiffness and Denies tingling Neuro Denies abnormal gait, Denies dizziness, Denies numbness and Denies tingling Endo Denies palpitations Physical Exam Vital Signs: Last Vital Signs Pulse 61 04/23/25 10:00 BP 134/62 04/23/25 10:00 BMI result Body Mass Index 29.5 Const General: cooperative, healthy appearing, comfortable and no acute distress Orientation/consciousness: patient oriented x3 Neck Neck: Yes normal visual inspection and Yes no JVD Resp Effort & Inspection: normal respiratory effort Auscultation: clear to auscultation bilaterally, no crackles, no rales, no rhonchi and no wheezes Cardio Rate: regular rate Rhythm: regular rhythm Heart sounds: S1 normal heart sound present, S2 normal heart sound present, no gallops, no murmurs and no rubs Neuro General: patient oriented x3 Extrem General: Yes normal to inspection, No no pedal edema and No calf tenderness Psych Appearance: grossly normal Mental Status: mental status grossly normal Speech and movement: Normal speech and movement present Office Procedures EKG Details: today, read by me, normal sinus rhythm, rate 61, Qtc 374ms [id number], Complete Assessment & Plan Assessment & Plan (1) Chest discomfort: Code(s): R07.89 - Other chest pain Category: Medical Plan: Reports of vague atypical chest discomfort. Seems more like chest wall in nature. Nuclear stress test done 03/06/2024 was normal. Last echo showed normal EF. Will update echocardiogram to reassess wall motion, EF. Plan to call her with results. Continue cardiac risk factor modification. (2) Syncope: Code(s): R55 - Syncope and collapse Category: Medical Plan: Prior reports of unwitnessed syncope. No recurrent episodes since that time. Cardiac evaluation included Echocardiogram 08/18/2023 showing EF 60-65%, normal valve Dopplers, impaired relaxation. A 14 day Holter monitor done on 10/20/2023 showed sinus rhythm with average heart rate 74, rare PACs and PVCs, patient press symptom counter 4 times which correlated with sinus rhythm. She has continued to have episodes of lightheadedness so she had a cardiac event monitor 11/30/23 for 30 days shows sinus rhythm with rare PACs, no significant ar rhythmia. No clear cardiac finding for her syncope. Reviewed ongoing need for good hydration, use caution when going sitting to standing. If she feels lightheaded she is to sit or lay down until the symptom passes. (3) LBBB (left bundle branch block): Code(s): I44.7 - Left bundle-branch block, unspecified Category: Medical Plan: History of Chronic left bundle branch block with normal EF. EKG done today is showing normal sinus rhythm with QRS 80 milliseconds, rate 61. Her left bundle branch block may be intermittent. Will be updating echo. (4) Essential hypertension: Code(s): I10 - Essential (primary) hypertension Category: Medical Plan: Blood pressure goal less than 130/80. Adequately controlled at this time. No medication changes made. (5) Palpitations: Code(s): R00.2 - Palpitations Category: Medical Plan: Prior reports of brief heart palpitations which were felt to be likely extrasystoles. Cardiac monitoring as above without significant abnormalities. Reviewed avoidance of caffeinated beverages, increase physical activity and getting adequate sleep. Plan Time spent on chart review, documentation, interview and assessment Orders: Orders CA echo transthoracic complete Today I44.7 - Left bundle-branch block, unspecified, R07.89 - Other chest pain Coding Level of Care Code Est Pt Level 4 (78584) Complex EM visit Add On G2211 Diagnoses Chest discomfort R07.89 Syncope R55 LBBB (left bundle branch block) I44.7 Essential hypertension I10 Palpitations R00.2 CPT Codes EKG - CPT: 62461-[id number], Complete ([id number]) Time Spent (min) 28
--- OUTSIDE RECORDS SUMMARY | 2025-04-23 11:04 | XMS_ITS | Clinical Summary ---
Author Organization [facility] Address [address] [place] [address] Phone Care Team Providers Care Casino Manager Name Role Phone Melissa Broderick MD Primary Care Provider [phone] Allergies Active Allergy Reactions Criticality Noted Date Comments Amlodipine Besylate-Valsartan Other (see comments) 01/16/2019 Aspirin Other (see comments) 12/27/2020 Medications Multiple Vitamins-[place] (CENTRUM SILVER 50+WOMEN PO) Take 1 tablet by mouth 1 (one) time each day Active [place]-3 Fatty Acids (FISH OIL PO) Take 1 [...] of 2 - PCV) 1959 Influenza Vaccine (#1) 2025 Hepatitis B Vaccine Aged Out No longe r eligible based on patient's age to complete this topic Insurance [facility] ([id number]) [facility] ([id number]) Care Teams Casino Manager Relationship Specialty Start Date End Date Melissa Broderick MD [address] [place], [place] PCP - General 08/26/20
--- OUTSIDE RECORDS SUMMARY | 2025-04-23 11:05 | XMS_ITS | Patient Health Record ---
Author Organization [facility] Address [address] [place] [address] Care Team Providers Care Meatcutter Name Role Phone Andrew Burciaga Primary Care Provider Rigoberto Fermin Unavailable [phone] Allergies Allergen (clinical drug ingredient) Drug/Non Drug Allergy documented on EMR Reaction Allergy Type Onset Date Status aspirin Aspirin Unknown Drug Allergy Active Reason For Referral No Information Medications Medication SIG (Take, Route, Frequency, Duration) Notes Start Date End Date Status Metoprolol & Diet Manage Prod 08/16/2024 08/16/2024 Active Lisinopril 08/16/2024 08/16/2024 Active Colyte with Flavor Packs 240 GM As directed Orally once for 1 dose 09/22/2012 Active Problems Problem Type SNOMED Code ICD Code Onset Dates Problem Status W/U Status Risk Notes Problem Colon cancer screening (190860272) Colon cancer screening (V76.51) Active confirmed Problem Diverticular disease of colon (952715316) Diverticulosis (562.10) Active confirmed Problem History of adenomatous polyp of colon (419987235) History of adenomatous polyp of colon (V12.72) Active confirmed Plan Of Treatment Future Test Test Name Order Date COLONOSCOPY 09/22/2012 Insurance Providers Payer Name Payer Address Payer Phone Subscriber Number Group Number Insured Name Patient Relationship to Insured Coverage Start Date Coverage End Date [place] [address] [place] [id number] [phone] [id number] VANESSA TAN Self - patient is the insured MEDICAID OF [facility] [address] [place] [phone] [id number] VANESSA TAN Self - patient is the insured Medical (General) History Medical History History ICD Code Tubular adenomas-colonoscopies in 1994, 1997, 2001, 2006 HTN asthma Intracerebral bleed in Denies [place],DM,renal disease diverticulosis Surgical History Surgery Date(Month/Year) hysterectomy tubal ligation CCY
== END 2025-04-23 10:33 | disposition home or self-care (01) ==
LOC: HO.HCS 09:41
PROVIDERS: PCP Internal Medicine; Visit Provider Nurse Practitioner Family
DX: R07.89 Other chest pain (principal); R55 Syncope and collapse; I44.7 Left bundle-branch block, unspecified; I10 Essential (primary) hypertension; R00.2 Palpitations
CPT/HCPCS: 93010; 99214; G2211

== ENCOUNTER → 2025-04-23 09:41 | Outpatient (BNVA) | payer OTHER, SELFPAY | PROVIDERS: PCP Internal Medicine; Visit Provider Nurse Practitioner Family | DX: R55 Syncope and collapse (principal); I44.7 Left bundle-branch block, unspecified; I10 Essential (primary) hypertension; R00.2 Palpitations; R07.89 Other chest pain | CPT/HCPCS: 93005; 99212 ==

== ENCOUNTER → 2025-06-06 15:01 | Outpatient (REF) | payer OTHER, SELFPAY ==
--- NOTE | 2025-06-06 15:03 | CA_ITS ---
Transthoracic Echocardiogram Patient (Last, First, Middle): Aditi Gibson, Gender: Female Date of : 1940 Age: 85 Procedure Date: 06/06/2025 Procedure Type: Transthoracic Echocardiogram Location: OP Height: 147.32 cm Weight: 63.96 kg BSA: 1.57 m2 Heart Rate: 71 bpm BP: 134 / 62 mmHg Textile Worker: DAVID Referring MD: Malia Lowe [employer] Environmental Construction Engineer: Gildardo Florez MD Symptoms: I44.7 - Left bundle-branch block, unspecified Study Quality: Fair ECG Rhythm: Sinus Conclusions: - 1. Normal LV ejection fraction of 65-70% 2. Possible PFO present 3. Early mild aortic stenosis 4. Normal RV systolic pressure 5. No gross pericardial effusion Findings Procedure Information The quality of the study was technically difficult. The study quality is limited by lung artifact. Left Ventricle Normal left ventricular size, thickness, and systolic function. The visually estimated ejection fraction is between 65-70%. Spectral Doppler is indicative of an impaired relaxation filling pattern. Right Ventricle Normal right ventricular cavity size and systolic function. Atria The left atrium is normal in size. There is a highly mobile atrial septum noted. that has suggestion of PFO by color Dopplers. Consider saline contrast study if clinically indicated. The right atrium is normal in size. Aortic Valve There is mild calcification of the aortic valve. There is mild aortic valve stenosis. The peak aortic gradient is 12 mmHg.The mean gradient is 6 mmHg. The aortic valve area is 1.62 cm2. There is no aortic valve regurgitation. Mitral Valve There is mild anterior and posterior mitral leaflet thickening. There is trace mitral valve regurgitation. There is no mitral valve stenosis. Pulmonic Valve The pulmonic valve is likely normal. Tricuspid Valve Likely normal tricuspid valve structure and function. There is trace tricuspid valve regurgitation. The right ventricular systolic pressure is normal. The right ventricular systolic pressure is 29 mmHg. Normal right atrial pressure. There is no evidence of pulmonary hypertension. Great Vessels All visible segments of the aorta are normal in size. There is no dilatation of the ascending aorta measuring 3.10 cm. Venous The inferior vena cava is normal in size and collapses greater than 50% with inspiration. Pericardium/Pleural There is no evidence of pericardial effusion. Prior Study Comparison Changes noted compared to prior study dated: 08/18/2023. early mild aortic stenosis Measurements 2D Linear Measurements IVSd: 0.94 0.6-0.9/0.6-1.0 cm LVIDd: 4.05 3.9-5.3/4.2-5.9 cm LVIDd Index: 2.58 2.4-3.2/2.2-3.1 cm/m2 LVIDs: 2.54 2.0-3.6 cm LVPWd: 0.72 0.7-1.1 cm LA Diam: 3.00 2.7-3.8/3.0-4.0 cm LAIDs Index: 1.91 1.5-2.3 cm/m2 LV Mass: 124.33 67-162/88-224 g LV Mass Index: 79.19 43-95/49-115 g/m2 LVOT Diam: 1.70 3.0+(-)1.3 cm 2D Systolic Function EF 4C: 58.90 >55% EF 2C: 67.50 >55% EF BiP: 65.40 >55% Mitral Valve MV Pk E: 0.90 MV PK A: 1.17 MV Decel Time: 238.00 E/A: 0.80 E'Lateral: 7.72 E'Medial: 4.46 E/E' Med: 20.30 E/E' Lat: 11.70 PHT: 70.00 MVA PHT: 3.14 Decel Emery: 3.80 Aortic Valve AoV Pk Jose: 1.73 AoV Mn Jose: 1.11 AoV VTI: 0.33 AoV Pk Grad: 12.00 Aov Mn Grad: 6.00 DESMOND Cont.VTI: 1.62 LVOT LVOT Pk Jose: 1.22 LVOT Mn Jose: 0.80 LVOT VTI: 0.23 LVOT Pk Grad: 6.00 LVOT Mn Grad: 3.00 LVOT Diam: 1.70 LVOT Area: 2.27 Diastolic Function MV Pk E: 0.90 MV Pk A: 1.17 E/A: 0.80 E'Medial: 4.46 E/E' Med: 20.30 E' Laterial: 7.72 E/E' Lat: 11.70 Right Ventricle TAPSE (mm): 20.00 TVS' Jose: 10.10 Tricuspid Valve TR Pk Jose: 2.56 TR Pk Grad: 26.00 RA Press: 3.00 RVSP: 29.00 Great Vessels Aorta Sinus of Valsalva: 2.60 2.0-3.5 cm Ao Asc: 3.10 2.1-3.4 cm Pulmonary Valve PV Pk Jose: 1.08 Peak PV Grad: 5.00 Updated in Other Vendor System with Status of Final Gildardo Florez MD electronically signed on 06/07/2025 4:05:41 PM with status of Final
--- OUTSIDE RECORDS SUMMARY | 2025-06-06 21:14 | XMS_ITS | Patient Health Record ---
Author Organization [facility] Address [address] [place] [address] Care Team Providers Care Medical Office Assistant Instructor Name Role Phone Andrew uBrciaga Primary Care Provider Rigoberto Fermin Unavailable [phone] Allergies Allergen (clinical drug ingredient) Drug/Non Drug Allergy documented on EMR Reaction Allergy Type Onset Date Status aspirin Aspirin Unknown Drug Allergy Active Reason For Referral No Information Medications Medication SIG (Take, Route, Frequency, Duration) Notes Start Date End Date Status Metoprolol & Diet Manage Prod 08/16/2024 08/16/2024 Active Lisinopril 08/16/2024 08/16/2024 Active Colyte with Flavor Packs 240 GM As directed Orally once; Duration: 1 dose 09/22/2012 Active Problems Problem Type SNOMED Code ICD Code Onset Dates Problem Status W/U Status Risk Notes Problem Colon cancer screening (279057024) Colon cancer screening (V76.51) Active confirmed Problem Diverticular disease of colon (040046684) Diverticulosis (562.10) Active confirmed Problem History of adenomatous polyp of colon (279801479) History of adenomatous polyp of colon (V12.72) Active confirmed Plan Of Treatment Future Test Test Name Order Date COLONOSCOPY 09/22/2012 Insurance Providers Payer Name Payer Address Payer Phone Subscriber Number Group Number Insured Name Patient Relationship to Insured Coverage Start Date Coverage End Date MEDICARE OF [place] [address] [place] [id number] [phone] [id number] VANESSA TAN Self - patient is the insured [facility]ICA[facility] [address] [place] [phone] [id number] VANESSA TAN Self - patient is the insured Medical (General) History Medical History History ICD Code Tubular adenomas-colonoscopies in 1994, 1997, 2001, 2006 HTN asthma Intracerebral bleed in Denies [place],DM,renal disease diverticulosis Surgical History Surgery Date(Month/Year) hysterectomy tubal ligation CCY
== END ==
LOC: HO.CARD 15:01
PROVIDERS: PCP Internal Medicine; Visit Provider Nurse Practitioner Family
DX: I44.7 Left bundle-branch block, unspecified (principal); R07.89 Other chest pain
CPT/HCPCS: 93306

== ENCOUNTER → 2025-06-06 15:03 | Outpatient (BNV) | payer OTHER, SELFPAY | PROVIDERS: PCP Internal Medicine; Visit Provider Internal Medicine Cardiovascular Disease | DX: I35.0 Nonrheumatic aortic (valve) stenosis (principal) | CPT/HCPCS: 93306 ==

== ENCOUNTER 2025-08-01 09:59 | Outpatient (AMB) | payer OTHER, SELFPAY ==
--- NOTE | 2025-08-01 10:03 | MHC.PC.OV ---
Vital Signs 08/01/25 10:06 Height 4 ft 10 in Weight 142 lb 8 oz BMI 29.8 BP 146/60 H Blood Pressure Location Lt brachial Position Sitting Respiration 16 Pulse 71 Pulse Source Pulse Oximeter Temp 97.5 F Temp Source Temporal Artery Scan Pulse Oximetry (%) 97 Oxygen Delivery Method Room Air Intake Visit Reasons: Annual Exam Teacher Citizenship Required: No Accompanied by: Daughter Allergies aspirin (ASA) Allergy (Intermediate, Verified 08/01/25 10:44) STOMACH ULCER Calcium Channel Blocking Agent Allergy (Uncoded 08/01/25 10:44) Angioedema Lotrel Allergy (Uncoded 08/01/25 10:44) Angioedema Medication List - Last Reconciled 08/01/25 by Melissa Terrell MD amitriptyline 50 mg PO BEDTIME 90 days fluticasone propionate 44 mcg/actuation 1 puff inhalation BID 30 days [incontinence wipes 4 packages per month] [lift chair As directed] meclizine 25 mg PO TID PRN 30 days metoprolol tartrate 25 mg PO BID omeprazole 20 mg PO DAILY 90 days [pantyliner As directed] simvastatin 20 mg PO DAILY 90 days spironolactone 25 mg PO DAILY 90 days Ventolin HFA 90 mcg/actuation (albuterol sulfate) 2 puffs inhalation Q6H PRN 30 days NS Tobacco use date assessed: 08/01/25 Fall risk assessment: No Falls in past year Last assessed Fall Risk: 08/01/25 Dental Screening Dental Screen Date: 08/01/25 Did you have a dental visit in the last 12 months?: No Did you have a dental problem in the last 6 months where you did not have access to dental care?: No Was dental information given to patient?: Patient has dentist HPI HPI Comments History of Present Illness Details The patient is an 85 year old female presenting for physical exam. Her blood pressure is noted to be borderline elevated. She has known allergies to aspirin, calcium channel blockers which caused angioedema, and Lotrel. Vaccines are up-to-date. Mammogram and DEXA scan done this year. No need for colonoscopy or Pap smears due to age. Her current medications include amitriptyline 50 mg nightly, meclizine as needed for dizziness, metoprolol, omeprazole, simvastatin 20 mg, and spironolactone 25 mg. The patient confirmed she took her spironolactone today. Recent laboratory results were notable for a blood glucose of 113 and a slightly elevated parathyroid hormone level, which is a recurrent finding. Her cholesterol levels were reported as very good. Regarding preventative health, the patient is up-to-date on her mammogram and bone densitometry, with both yielding normal results. She has a history of prior pneumonia vaccination but is due for the PCV20 vaccine for broader coverage. She denies depression. [facility] Medical History Moderate persistent asthma Vertigo Hyperparathyroidism Hip pain Mild asthma Impaired glucose tolerance Pure hypercholesterolemia Essential hypertension GERD (gastroesophageal reflux disease) Insomnia Surgical History History of cholecystectomy History of hysterectomy Family History Father No problems noted. Mother Diabetes mellitus Brother Cancer Social History Housing: Apartment Alcohol intake: never Patient Tobacco Use Status: Never used Tobacco e-Cigarette/Vaping Use: Never Used Second Hand Smoke Exposure: Yes service: No Current occupational status: retired Cognitive needs: No Hearing needs: No Vision needs: Yes Questionnaire PHQ-9 Over the last 2 weeks, how often have you been bothered by any of the following problems? 1. Little interest or pleasure in doing things: not at all 2. Feeling down, depressed, or hopeless: not at all 3. Trouble falling or staying asleep, or sleeping too much: not at all 4. Feeling tired or having little energy: not at all 5. Poor appetite or overeating: not at all 6. Feeling bad about yourself - or that you are a failure or have let yourself or your family down: not at all 7. Trouble concentrating on things, such as reading the newspaper or watching television: not at all 8. Moving or speaking so slowly that other people could have noticed. Or the opposite - being so fidgety or restless that you have been moving around a lot more than usual: not at all 9. Thoughts that you would be better off or of hurting yourself in some way: not at all Total score: 0 Depression Screening Interpretation: Negative Depression Screening Done: Yes 83650 - PHQ-9 Billing: Yes Source: Developed by Drs. Rigoberto Bartholomew, Ranulfo Lizarraga and colleagues, with an educational laurence from [employer]. Thrive Questionnaire Date Thrive assessed: 08/01/25 I am a: Patient What is your living situation today?: I have a steady place to live Within the past 12 months, did the food you bought not last and you didn't have the money to get more?: Never true Within the past 12 months, did you worry whether your food would run out before you got money to buy more?: Never true Do you have trouble paying for medicines?: No Do you have trouble getting transportation to medical appointments?: No Do you have trouble paying your heating and electricity bill?: No Do you have trouble taking care of your child, family member or friend?: No Do you have trouble with day-to-day activities such as bathing, preparing meals, shopping, managing finances, etc.?: No Are you currently unemployed and looking for a job?: No Are you interested in more education?: No Please select the resources that you would like help with: None Currently or been in a relationship where the following occur: No concerns reported THRIVE Score: 0 AUDIT C Alcohol Use Questionnaire (AUDIT-C) 1. How often do you have a drink containing alcohol?: Never Total Score: 0 Score Reviewed/Action Taken: No THAIS-7 AMB Questionnaire THAIS-7 Date THAIS - 7 assessed: 08/01/25 Feeling nervous, anxious, or on edge: 0 = Not at all Not being able to stop or control worryin = Not at all Worrying too much about different things: 0 = Not at all Trouble relaxin = Not at all Being so restless that it is hard to sit still: 0 = Not at all Becoming easily annoyed or irritable: 0 = Not at all Feeling afraid as if something awful might happen: 0 = Not at all Total THAIS-7 score (0-4 normal; 5-9 mild; 10-14 moderate; 15-21 severe): 0 Source: Developed by Sabrina Li Kurt Kroenke and colleagues, with an educational laurence from [employer]. THAIS-7 Assessment Billing THAIS-7 Assessment Tool: THAIS-7 Assessment 00972 Review of Systems Const All systems reviewed & are unremarkable except as noted in HPI and below Card Denies chest pain at rest, Denies chest pain with activity, Denies edema, Denies irregular heart rhythm, Denies claudication, Denies dyspnea, Denies dyspnea on exertion, Denies orthopnea, Denies paroxysmal nocturnal dyspnea and Denies slow heart rate Resp Denies cough, Denies dyspnea and Denies dyspnea on exertion GI Denies abdominal pain, Denies change in bowel habits, Denies excessive flatus, Denies nausea and Denies vomiting Denies urinary incontinence, Denies urinary hesitancy and Denies urinary urgency Musc Denies abnormal gait, Denies atrophy, Denies deformity and Denies limited range of motion Skin/Breast Denies bleeding lesions, Denies changing lesions and Denies rash Neuro Denies abnormal gait and Denies lack of coordination Physical exam (Primary Care) Vital Signs: Last Vital Signs Temp 97.5 F 08/01/25 10:06 Pulse 71 08/01/25 10:06 Resp 16 08/01/25 10:06 BP 146/60 H 08/01/25 10:06 Pulse Ox 97 08/01/25 10:06 Oxygen Delivery Method Room Air 08/01/25 10:06 BMI result Body Mass Index 29.8 Tobacco/Smoking Status: Tobacco use Status Tobacco use date assessed 08/01/25 08/01/25 10:07 Patient Tobacco Use Status Never used Tobacco 08/01/25 10:07 e-Cigarette/Vaping Use Never Used 08/01/25 10:07 PHQ-9: PHQ-9 Score PHQ-9: Total score 0 08/01/25 10:48 Depression Screening Interpretation: Negative Thrive Assessment: Date of Thrive Assessment Date Thrive assessed 08/01/25 08/01/25 10:07 Currently or been in a relationship where the following occur: No concerns reported Resp Effort & Inspection: normal respiratory effort Auscultation: clear to auscultation bilaterally Cardio Jugular venous distension: no JVD Rate: regular rate Rhythm: regular rhythm Heart sounds: S1 normal heart sound present and S2 normal heart sound present Extrem General: Yes full ROM Immunizations pneumoc 20-jose conj-dip cr(PF) 0.5 mL IM syringe Performing Provider: Melissa Terrell MD [place] [facility] [place] [facility] Administered by: Krista Bryson RN on 08/01/25 11:07 Dose Route Admin Location Dispensed Lot Number Expiration Date [place] Balance Wheel Screw Hole Driller 0.5 mL IM Left Deltoid 0.5 mL [id number] 05/15/26 6940-3276-10 [employer]/P[employer]ZER Total Dispensed Waste 0.5 mL 0 % VIS Given Date VIS Provided VIS Publication Date 08/01/25 Single Vaccine 25 Eligibility Eligibility Date Funding Source Not [facility] Eligible 08/01/25 Private Coding Level of Care Code Est Pt Prev Care >65y(57345) Diagnoses Adult general medical exam Z00.00 Stage 3a chronic kidney disease N18.31 Chronic kidney disease stage 3 subtype: stage 3a (GFR 45-59) Hyperparathyroidism E21.3 Additional Codes THAIS-7 Assessment Billing - THAIS-7 Assessment Tool: THAIS-7 Assessment 12601 ([id number]) PHQ-9 - 83602 - PHQ-9 Billing: Yes ([id number]) Time Spent (min) 30 Assessment & Plan Assessment & Plan (1) Adult general medical exam: Code(s): Z00.00 - Encounter for general adult medical examination without abnormal findings Category: Medical (2) CKD (chronic kidney disease) stage 3, GFR 30-59 ml/min: Code(s): N18.30 - Chronic kidney disease, stage 3 unspecified Category: Medical Qualifiers: Chronic kidney disease stage 3 subtype: stage 3a (GFR 45-59) Qualified Code(s): N18.31 - Chronic kidney disease, stage 3a (3) Hyperparathyroidism: Code(s): E21.3 - Hyperparathyroidism, unspecified Category: Medical Plan Plan 1, physical exam PCV 20 pneumonia vaccine done today. Td up-to-date. Flu vaccine place this year. 2. Hypertension The patient's blood pressure is borderline elevated. A follow-up appointment with a nurse will be scheduled in 3 weeks to recheck her blood pressure. 3. Hyperparathyroidism The patient has a persistently elevated parathyroid hormone level. Repeat lab work, including a parathyroid level, will be ordered. Orders: Orders Lipid Panel Today E78.5 - Hyperlipidemia, unspecified Calcium, Ionized Today E21.3 - Hyperparathyroidism, unspecified Phosphorus Today E21.3 - Hyperparathyroidism, unspecified Pneumococcal 20 Immunization Today Z23 - Encounter for immunization Vitamin D 25-OH Total Today E55.9 - Vitamin D deficiency, unspecified Comprehensive [place]. Panel Fast Today N18.31 - Chronic kidney disease, stage 3a Parathyroid Hormone Intact Today E21.3 - Hyperparathyroidism, unspecified Calcium, 24 Hr Ur Today E21.3 - Hyperparathyroidism, unspecified
[2025-08-01 10:06] VITALS: BP 146/60; PULSE 71; RESP 16; TEMP 36.4; O2SAT 97; BMI 29.8
--- OUTSIDE RECORDS SUMMARY | 2025-08-01 12:10 | XMS_ITS | Patient Health Record ---
Author Organization [facility] Address [address] [place] [address] Care Team Providers Care Remote Inpatient Coder Name Role Phone Andrew Burciaga Primary Care Provider Rigoberto Fermin Unavailable [phone] Allergies Allergen (clinical drug ingredient) Drug/Non Drug Allergy documented on EMR Reaction Allergy Type Onset Date Status aspirin Aspirin Unknown Drug Allergy Active Reason For Referral No Information Medications Medication SIG (Take, Route, Frequency, Duration) Notes Start Date End Date Status Metoprolol & Diet Manage Prod Active Lisinopril Active Colyte with Flavor Packs 240 GM Solution Reconstituted As directed Orally once; Duration: 1 dose 09/22/2012 Active Social History Social History Additional Details Category Social Info Options Details Miscellaneous: Marital status: Section Notes: Nonsmoker; no alcohol Problems Problem Type SNOMED Code ICD Code Onset Dates Problem Status W/U Status Risk Notes Problem Colon cancer screening (961408770) Colon cancer screening (V76.51) Active confirmed Problem Diverticular disease of colon (803203123) Diverticulosis (562.10) Active confirmed Problem History of adenomatous polyp of colon (123850378) History of adenomatous polyp of colon (V12.72) Active confirmed Plan Of Treatment Future Test Test Name Order Date COLONOSCOPY 09/22/2012 Insurance Providers Payer Name Payer Address Payer Phone Subscriber Number Group Number Insured Name Patient Relationship to Insured Coverage Start Date Coverage End Date MEDICARE OF [place] [address] [place] [id number] VANESSA TAN Self - patient is the insured MEDICAID OF [facility] [address] [place] [address] [phone] [id number] VANESSA TAN Self - patient is the insured Medical (General) History Medical History History ICD Code Tubular adenomas-colonoscopies in 1994, 1997, 2001, 2006 HTN asthma Intracerebral bleed in 1979' Denies MD,DM,renal disease diverticulosis Surgical History Surgery Date(Month/Year) hysterectomy tubal ligation [facility]
== END 2025-08-01 11:11 | disposition home or self-care (01) ==
LOC: HO.HMCH 10:00
PROVIDERS: PCP Internal Medicine; Visit Provider Internal Medicine
DX: Z00.00 Encounter for general adult medical examination without abnormal findings (principal); N18.31 Chronic kidney disease, stage 3a; E21.3 Hyperparathyroidism, unspecified; Z23 Encounter for immunization

== ENCOUNTER → 2025-08-01 09:59 | Outpatient (BNVA) | payer OTHER, SELFPAY | PROVIDERS: PCP Internal Medicine; Visit Provider Internal Medicine | DX: Z00.00 Encounter for general adult medical examination without abnormal findings (principal); E21.3 Hyperparathyroidism, unspecified; N18.31 Chronic kidney disease, stage 3a; E78.5 Hyperlipidemia, unspecified; E55.9 Vitamin D deficiency, unspecified; Z23 Encounter for immunization | CPT/HCPCS: 90471; 90677; 96127; 99397 ==